=== PATIENT | female | born 1950 | race Caucasian/White ===

== ENCOUNTER 2016-12-08 13:39 | Outpatient (CLI) | payer OTHER ==
[~2016-12-08 13:39] MED LIST: ACETAMINOPHEN325 MG PO; ATENOLOL50 MG PO; ATORVASTATIN CA20 MG PO; METFORMIN HCL500 MG PO; NITROSTAT0.4 MG SL; PRILOSEC20 MG PO
--- NOTE | 2016-12-08 14:23 | DIAGNOSTIC IMAGING REPORT ---
PROCEDURE: US VENOUS - BILATERAL EXT INDICATION: EDEMA TECHNIQUE: Duplex sonography of the deep venous system in both lower extremities was performed. Compression and augmentation techniques were used. COMPARISON: 11/08/2016 FINDINGS: Each interrogated segment of deep vein from the common femoral vein into the calf veins demonstrates normal compressibility, augmentation and/or color Doppler flow without filling defect. No evidence of significant soft-tissue edema, soft-tissue mass or cyst. IMPRESSION: 1. No deep venous thrombosis in either lower extremity.
== END 2016-12-08 23:00 ==
LOC: US SRH 13:39
DX: R60.9 Edema, unspecified (principal)

== ENCOUNTER 2016-12-14 13:03 | Outpatient (CLI) | payer OTHER ==
--- NOTE | 2016-12-15 08:07 | DIAGNOSTIC IMAGING REPORT ---
PROCEDURE: MR BRAIN WITHOUT CONTRAST INDICATION: HEADACHE;ASTROCYTOMA TECHNIQUE: Sagittal T1 FLAIR; coronal T2; axial T1 FLAIR, T2-weighted FLAIR, T2 FSE, gradient echo T2, DWI and ADC sequences. 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 Interval right temporal lobe volume loss with enlargement of the right temporal horn. Right parietal craniotomy defect. Normal sulci. Normal ventricular system with interval mild enlargement. There is no hemorrhage or acute CVA. Normal vascular flow voids. Mild bilateral maxillary and ethmoid sinusitis. Mastoids are clear IMPRESSION: 1. 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 Mild bilateral maxillary and ethmoid sinus 3. Results discussed with Dr. Hogue
== END 2016-12-14 23:00 ==
LOC: MRI SRH 13:03
DX: R51 Headache (principal); C72.9 Malignant neoplasm of central nervous system, unspecified

== ENCOUNTER 2016-12-18 15:06 | Outpatient (CLI) | payer OTHER ==
--- NOTE | 2016-12-18 16:05 | DIAGNOSTIC IMAGING REPORT ---
PROCEDURE: XR CHEST 2 VIEW INDICATION: COUGH TECHNIQUE: PA and lateral views. COMPARISON: Chest 09/21/2016 10/06/2015 03/19/2015 and 07/31/2015 FINDINGS: There is linear infiltrate or atelectasis in the left lower lobe. This appearance was present on previous films. Chest CT may be the best way to evaluate the left lower lobe. Heart and mediastinum are normal. Thorax is normal. IMPRESSION: 1. Probable left lower lobe infiltrate.
== END 2016-12-18 23:00 ==
LOC: XR SRH 15:06
DX: C71.9 Malignant neoplasm of brain, unspecified (principal); R05 Cough

== ENCOUNTER 2016-12-19 14:36 | Outpatient (CLI) | payer OTHER ==
--- NOTE | 2016-12-19 15:43 | DIAGNOSTIC IMAGING REPORT ---
PROCEDURE: CTA THORAX WITH CONTRAST INDICATION: Noted. Shortness of breath. Assess for pulmonary embolus. TECHNIQUE: 86 ml of Isovue 370 was injected intravenously and axial images were obtained of the entire thorax with 3D sagittal and coronal MIP reconstructions. COMPARISON: Comparison is made to chest x-rays on 12/19/2016 and 09/21/2016. FINDINGS: There is mild to moderate respiratory motion as the patient was unable to fully cooperate, and this limits evaluation of peripheral vessels. No large central emboli are identified. There are mild parenchymal changes at the anterior lung bases most compatible with subsegmental atelectasis or scarring. Mid and upper lungs are clear. Heart and mediastinum are within normal limits. Small hiatal hernia. Status post cholecystectomy. Mild to moderate degenerative changes of the thoracic spine Thorax is otherwise normal. IMPRESSION: 1. Study is limited due to respiratory motion, and while subtle peripheral emboli may be difficult to exclude, there are no large central emboli, and there is nothing to suggest pulmonary embolus. 2. Mild of parenchymal changes at the anterior lung bases most compatible with scarring or subsegmental atelectasis (versus resolving pneumonia). 3. Findings discussed with Dr. Kristina Hogue. All CT scans at this facility use dose modulation, iterative reconstruction, and/or weight-based dosing when appropriate to reduce radiation dose to as low as reasonably achievable.
== END 2016-12-19 23:00 ==
LOC: CT SRH 14:36
DX: R06.02 Shortness of breath (principal)

== ENCOUNTER 2017-02-05 13:53 | Outpatient (CLI) | payer OTHER ==
--- NOTE | 2017-02-05 14:45 | DIAGNOSTIC IMAGING REPORT ---
PROCEDURE: CT HEAD WITHOUT CONTRAST INDICATION: FELL HIT HEAD TECHNIQUE: Axial CT images were acquired through the head. Coronal and sagittal reformations were created. COMPARISON: Brain MR 12/14/2016 FINDINGS: No intracranial hemorrhage or extraaxial fluid collections. Diffuse asymmetric hypodensity throughout the right parietal, occipital, and to a lesser extent temporal and frontal lobe white matter. There are a few focal punctate hyperdensities in the right parietal lobe corresponding to the centrally necrotic amorphous mass on prior MRI. There are focal hypodensities in the right basal ganglia and right internal capsule, stable. No new edema. Ventricles are minimally enlarged, normal in shape and position. There is no visible mass, mass effect or midline shift. The oakes-white matter differentiation is normal. Right parietal craniotomy defect, stable. Small amount of mucus dependently in the left maxillary sinus. The paranasal sinuses and mastoid air cells are otherwise normally aerated. The extracranial soft tissues and orbits are normal. IMPRESSION: 1. No CT evidence of acute hemorrhage, mass effect, or stroke. 2. Chronic findings of right temporoparietal mass, associated edema, and treatment changes. 3. Findings discussed with Dr. Gould at [address] scans at this facility use dose modulation, iterative reconstruction, and/or weight-based dosing when appropriate to reduce radiation dose to as low as reasonably achievable.
== END 2017-02-05 23:00 ==
LOC: CT SRH 13:53
DX: R60.9 Edema, unspecified (principal); G93.89 Other specified disorders of brain; R29.6 Repeated falls

== ENCOUNTER 2017-02-24 11:50 | Emergency (ER) | payer OTHER ==
--- NOTE | 2017-02-24 14:08 | DIAGNOSTIC IMAGING REPORT ---
PROCEDURE: XR LUMBAR SPINE 2 OR 3 VIEWS INDICATION: TRAUMA/INJURY TECHNIQUE: Three views. COMPARISON: Compared to radiographs of the lumbar spine on 06/13/2012. FINDINGS: Mild levoscoliosis and marked degenerative changes of the lower lumbar spine. No evidence of an acute process or fracture. IMPRESSION: 1. Marked degenerative changes of the lower lumbar spine. 2. No evidence of acute process or fracture.
--- NOTE | 2017-02-24 14:28 | DIAGNOSTIC IMAGING REPORT ---
PROCEDURE: CT THORACIC SPINE W/O CONT (lower thoracic upper lumbar spine). INDICATION: TRAUMA/INJURY TECHNIQUE: Noncontrast axial images with sagittal and coronal formation is were obtained from mid T7-L2. COMPARISON: Comparison made radiographs of the lumbar spine earlier today (02/24/2017) and CTA thorax (12/19/2016). FINDINGS: There is a 10% old compression deformity T11 vertebral body with mild to moderate degenerative changes of the lower thoracic levels. Findings suggest a subtle compression injury of the superior endplate of L1. The rest of the osseous structures and disc spaces are normal. Alignment is normal. IMPRESSION: 1. There is a 10% old compression deformity of T11. 2. Findings suggest a subtle compression injury/fracture of the superior endplate of L1. 3. Mild to moderate degenerative changes of the lower thoracic spine. 4. Findings discussed with SHENG Burrows. All CT scans at this facility use dose modulation, iterative reconstruction, and/or weight-based dosing when appropriate to reduce radiation dose to as low as reasonably achievable.
--- NOTE | 2017-02-24 15:30 | DIAGNOSTIC IMAGING REPORT ---
PROCEDURE: CT HEAD WITHOUT CONTRAST INDICATION: Trauma/injury. History of brain tumor. TECHNIQUE: Noncontrast axial images with sagittal and coronal reformations. COMPARISON: Compared to a head CT on 02/05/2017 and MRI brain (12/14/2016). FINDINGS: Status post right parietal craniotomy. There is no change in moderate low density in the right temporal parietal region with central dystrophic calcifications. The rest of the brain and ventricles are normal. No evidence of an acute process or hemorrhage. There is mild chronic mucosal thickening in the left maxillary sinus. Sinuses and mastoids are otherwise normal. and mastoids are normal. IMPRESSION: 1. No change in moderate low density and dystrophic calcifications in the right temporal parietal region consistent with treated primary brain neoplasm. 2. No evidence of acute process. 3. Findings discussed with Beckie Jorge at [address] scans at this facility use dose modulation, iterative reconstruction, and/or weight-based dosing when appropriate to reduce radiation dose to as low as reasonably achievable.
--- NOTE | 2017-02-24 15:40 | ED ORDER SUMMARY ---
..... Patient: BETINA CAMARA OrderSheet [facility] VisitID: [id number] [address] [place] [address] 66y, F Registration Date/Time: 02/24/2017 ORDER SHEET Weight: 107.0 kg (stated) Allergies: Penicillin GENERAL ORDERS: Lumbar Spine 2 or 3V Urgent (12:13 02/24/2017 EKoroleva P.A.-C) (Ack 12:15 LNations ER Tech1) (12:50 LNations ER Tech1) CT Thoracic Spine wo Cont (attention to T10-L2) Urgent (13:09 02/24/2017 EKoroleva P.A.-C) (Ack 13:14 RKaruga) (13:17 KKnebel R.N.) CT Head wo Cont Urgent (14:37 02/24/2017 EKoroleva P.A.-C) (Ack 14:44 RKaruga) (15:09 KKnebel R.N.) MEDICATION ORDERS: Dilaudid IM 0.5 mg (HIGH ALERT MEDICATION, NOW) (12:12 02/24/2017 EKoroleva P.A.-C) (12:22 KKnebel R.N.) Phenergan IM 12.5 mg (HIGH ALERT MEDICATION, NOW) (12:12 02/24/2017 EKoroleva P.A.-C) (12:23 KKnebel R.N.) Dilaudid IM 1 mg (HIGH ALERT MEDICATION, NOW) (14:20 02/24/2017 EKoroleva P.A.-C) (14:29 KKnebel R.N.) Zofran ODT PO 4 mg (NOW) (16:01 02/24/2017 EKoroleva P.A.-C) (16:06 KKnebel R.N.) IV FLUIDS: ORDER SHEET NOTES: [Electronically signed by Hillary JorgeA.-C (16:38 02/24/2017)] [Electronically signed by Destini Rivera R.N. (22:46 02/24/2017)] [Electronically locked/signed by Destini Rivera R.N. (22:46 02/24/2017)]
--- NOTE | 2017-02-24 15:40 | ED NURSING NOTES ---
Clinical Report - Nurses [facility] [address] [place] [address] 02/24/2017 11:51 Patient: BETINA CAMARA TRIAGE Triage time 11:56 Feb 24 2017. Acuity: LEVEL 3. Chief Complaint: BACK PAIN. Alert. No acute distress. CAYLA COMA SCORE: Cayla Coma Scale: 15- eyes open spontaneously (4); best verbal response- oriented x 4 (5); best motor response- obeys commands (6). --12:05 Destini Rivera R.N. 11:56 02/24/17. BP: 135/84. HR: 88. RR: 16. O2 saturation: 93%. Temp: 97.6 F. Pain level now: 05/28. --12:05 Destini Rivera R.N. Weight: 107 kg stated. Height/Length: 65 inches Per Patient. BMI: 39.3. --12:06 Destini Rivera R.N. Medications Bupropion. --11:57 Destini Rivera R.N. Dexamethasone Oral. --11:58 Destini Rivera R.N. Lisinopril Oral. --11:58 Destini Rivera R.N. MetFORMIN HCl Oral. --11:58 Destini Rivera R.N. Zofran. --11:59 Destini Rivera R.N. Chemotherapy. --11:59 Destini Rivera R.N. Lantus. --12:05 Destini Rivera R.N. Compazine. --12:05 Destini Rivera R.N. Bactrim. --12:05 Destini Rivera R.N. Allergies Penicillin. --11:57 Destini Rivera R.N. History Arrived by EMS. Historian: patient. This started just prior to arrival. ( pt fell off toilet and hit head on door). She has had pre-existing weakness of the left arm and leg. She has had trouble walking. No history of recent trauma. Occurred at home. Treatment EARTH MOVING TECHNICIAN: None. PAST MEDICAL HX: Tetanus status: up-to-date. Immunizations: up-to-date. SOCIAL HX: Never smoker. Occasional alcohol use. No drug use. No infectious disease exposure. SELF HARM ASSESSMENT: A self harm assessment was performed. The patient was asked "Do you have thoughts of harming or killing yourself?". NUTRITIONAL RISK ASSESSMENT: The nutritional risk assessment revealed no deficiencies. FUNCTIONAL ASSESSMENT: Functional assessment: no impairments noted. LEARNING NEEDS ASSESSMENT: The learning needs assessment revealed no barriers. ABUSE ASSESSMENT: Abuse assessment: The patient was asked "Do you feel safe in your home?". FALL RISK ASSESSMENT: Fall risk assessment completed. Risk factors identified include patient medications, age greater than 65 years and history of fall. Fall interventions initiated. Side rails up x2. Brakes on Bed in low position. Patient visible from nurses' station and identified as a fall risk by ID band. Family at bedside. Instructed not to get up without assistance. SKIN INTEGRITY ASSESSMENT: Skin integrity risk assessment completed. No skin integrity risk identified. --12:05 Destini Rivera R.N. PROBLEMS: Hypertension. Brain Tumor. Chest Pain. Abdominal Pain. Vomiting. Gastroesophageal Reflux Disease. Diabetes Mellitus. Irregular heart beat. --12:00 Destini Rivera R.N. ADDITIONAL SURGERIES: Brain surgery. Cholecystectomy. --12:00 Destini Rivera R.N. Assessment The patient states does not feel the same. --12:05 Destini Rivera R.N. Interventions ID band on patient. --12:05 Destini Rivera R.N. PHYSICAL ASSESSMENT GENERAL / NEURO / PSYCH: Alert. Oriented X 4. Appears in no acute distress. RESPIRATORY: Respirations not labored. CVS: Capillary refill less than 2 seconds. GI / : Abdomen soft and nontender. EXTREMITIES: Limited ROM present. BACK: Limited ROM. Soft tissue tenderness. --12:05 Destini Rivera R.N. NURSING PROGRESS NOTES Pulse oximeter and NIBP monitor placed on patient. Patient gowned. Head of bed elevated. Two patient identifiers checked. Call light placed in reach. Side rails up x 1. Bed placed in lowest position. Brakes of bed on. --12:07 Destini Rivera R.N. 12:22 02/24/2017 Dilaudid (HYDROmorphone HCl PF) IM 0.5 mg given. Given in the left gluteus nalini. Allergies verified, confirmed 5 rights and sedative warning given to the patient. --12:22 Destini Rivera R.N. 12:23 02/24/2017 Phenergan (Promethazine HCl) IM 12.5 mg given. Given in the left gluteus nalini. Allergies verified, confirmed 5 rights and sedative warning given to the patient. --12:23 Destini Rivera R.N. Patient transported to radiology by stretcher with tech. (12:33 Feb 24 2017). --12:33 Destini Rivera R.N. Patient returned from radiology by stretcher with tech. (12:50 Feb 24 2017). --12:50 Destini Rivera R.N. 12:52 02/24/17. BP: 125/74. HR: 78. RR: 16. O2 saturation: 94%. Pain level now: 05/28. --12:52 Destini Rivera R.N. Patient transported to CT by stretcher with tech. (13:16 Feb 24 2017). --13:16 Destini Rivera R.N. 14:13 02/24/17. BP: 108/69. HR: 83. O2 saturation: 93%. Pain level now: 04/28. --14:16 Destini Rivera R.N. Reassessment after medication administered. She is calm and resting quietly. Overall patient status is improved. GENERAL / NEURO / PSYCH: Alert. Oriented X 4. BACK: The patient reports lower back pain is still present but improving. SKIN: Skin is warm and dry. Skin color within normal limits. --14:16 Destini Rivera R.N. 14:24 02/24/2017 Dilaudid (HYDROmorphone HCl PF) IM 1 mg given. Given in the left deltoid. Allergies verified, confirmed 5 rights and sedative warning given to the patient. --14:29 Destini Rivera R.N. ( repositioned pt on her right side for comfort). --14:30 Destini Rivera R.N. 15:03 02/24/17. BP: 124/75. HR: 97. RR: 16. O2 saturation: 91%. Additional comments: pt states that she is not having any pain while laying flat, but is painful when she tries to sit up. Patient sleeping at this time. . --15:04 Destini Rivera R.N. 16:06 02/24/2017 Zofran ODT (Ondansetron) PO 4 mg given. Allergies verified and confirmed 5 rights. --16:06 Destini Rivera R.N. DISPOSITION / DISCHARGE 16:45 02/24/17. Departure time: 1634. Condition at departure: improved. Reviewed medication(s) side effects, precautions, dosing and course information (spouse). Spouse and family verbalized understanding. Written instructions provided in Nepali. The patient was discharged by the physician circulation assistant. She was discharged home and accompanied by spouse and family. She left the Emergency Department in a wheelchair and via private vehicle. Spouse driving. ( pt is able to stand and pivot with walker to personal w/c). --16:45 Sam Goldstein R.N. 16:40 02/24/17. BP: 122/91. HR: 107. RR: 16. O2 saturation: 98% on room air. Temp: 97.7 F (oral). Pain level now 0/10. --16:45 Sam Goldstein R.N. Locked/Released at 02/24/2017 22:46 by Destini Rivera R.N.
--- NOTE | 2017-02-24 15:40 | ED NURSING NOTES ---
Clinical Report - Nurses [facility] [address] [place] [address] 02/24/2017 11:51 Patient: BETINA CAMARA TRIAGE Triage time 11:56 Feb 24 2017. Acuity: LEVEL 3. Chief Complaint: BACK PAIN. Alert. No acute distress. CAYLA COMA SCORE: Cayla Coma Scale: 15- eyes open spontaneously (4); best verbal response- oriented x 4 (5); best motor response- obeys commands (6). --12:05 Destini Rivera R.N. 11:56 02/24/17. BP: 135/84. HR: 88. RR: 16. O2 saturation: 93%. Temp: 97.6 F. Pain level now: 05/28. --12:05 Destini Rivera R.N. Weight: 107 kg stated. Height/Length: 65 inches Per Patient. BMI: 39.3. --12:06 Destini Rivera R.N. Medications Bupropion. --11:57 Destini Rivera R.N. Dexamethasone Oral. --11:58 Destini Rivera R.N. Lisinopril Oral. --11:58 Destini Rivera R.N. MetFORMIN HCl Oral. --11:58 Destini Rivera R.N. Zofran. --11:59 Destini iRvera R.N. Chemotherapy. --11:59 Destini Rivera R.N. Lantus. --12:05 Destini Rivera R.N. Compazine. --12:05 Destini Rivera R.N. Bactrim. --12:05 Destini Rivera R.N. Allergies Penicillin. --11:57 Destini Rivera R.N. History Arrived by EMS. Historian: patient. This started just prior to arrival. ( pt fell off toilet and hit head on door). She has had pre-existing weakness of the left arm and leg. She has had trouble walking. No history of recent trauma. Occurred at home. 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 PAST MEDICAL HX: Tetanus status: up-to-date. Immunizations: up-to-date. SOCIAL HX: Never smoker. Occasional alcohol use. No drug use. No infectious disease exposure. SELF HARM ASSESSMENT: A self harm assessment was performed. The patient was asked "Do you have thoughts of harming or killing yourself?". NUTRITIONAL RISK ASSESSMENT: The nutritional risk assessment revealed no deficiencies. FUNCTIONAL ASSESSMENT: Functional assessment: no impairments noted. LEARNING NEEDS ASSESSMENT: The learning needs assessment revealed no barriers. ABUSE ASSESSMENT: Abuse assessment: The patient was asked "Do you feel safe in your home?". FALL RISK ASSESSMENT: Fall risk assessment completed. Risk factors identified include patient medications, age greater than 65 years and history of fall. Fall interventions initiated. Side rails up x2. Brakes on Bed in low position. Patient visible from nurses' station and identified as a fall risk by ID band. Family at bedside. Instructed not to get up without assistance. SKIN INTEGRITY ASSESSMENT: Skin integrity risk assessment completed. No skin integrity risk identified. --12:05 Destini Rivera R.N. PROBLEMS: Hypertension. Brain Tumor. Chest Pain. Abdominal Pain. Vomiting. Gastroesophageal Reflux Disease. Diabetes Mellitus. Irregular heart beat. --12:00 Destini Rivera R.N. ADDITIONAL SURGERIES: Brain surgery. Cholecystectomy. --12:00 Destini Rivera R.N. Assessment The patient states does not feel the same. --12:05 Destini Rivera R.N. Interventions ID band on patient. --12:05 Destini Rivera R.N. PHYSICAL ASSESSMENT GENERAL / NEURO / PSYCH: Alert. Oriented X 4. Appears in no acute distress. RESPIRATORY: Respirations not labored. CVS: Capillary refill less than 2 seconds. GI / : Abdomen soft and nontender. EXTREMITIES: Limited ROM present. BACK: Limited ROM. Soft tissue tenderness. --12:05 Destini Rivera R.N. NURSING PROGRESS NOTES Pulse oximeter and NIBP monitor placed on patient. Patient gowned. Head of bed elevated. Two patient identifiers checked. Call light placed in reach. Side rails up x 1. Bed placed in lowest position. Brakes of bed on. --12:07 Destini Rivera R.N. 12:22 02/24/2017 Dilaudid (HYDROmorphone HCl PF) IM 0.5 mg given. Given in the left gluteus nalini. Allergies verified, confirmed 5 rights and sedative warning given to the patient. --12:22 Destini Rivera R.N. 12:23 02/24/2017 Phenergan (Promethazine HCl) IM 12.5 mg given. Given in the left gluteus nalini. Allergies verified, confirmed 5 rights and sedative warning given to the patient. --12:23 Destini Rivera R.N. Patient transported to radiology by stretcher with tech. (12:33 Feb 24 2017). --12:33 Destini Rivera R.N. Patient returned from radiology by stretcher with tech. (12:50 Feb 24 2017). --12:50 Destini Rivera R.N. 12:52 02/24/17. BP: 125/74. HR: 78. RR: 16. O2 saturation: 94%. Pain level now: 05/28. --12:52 Destini Rivera R.N. Patient transported to CT by stretcher with tech. (13:16 Feb 24 2017). --13:16 Destini Rivera R.N. 14:13 02/24/17. BP: 108/69. HR: 83. O2 saturation: 93%. Pain level now: 04/28. --14:16 Destini Rivera R.N. Reassessment after medication administered. She is calm and resting quietly. Overall patient status is improved. GENERAL / NEURO / PSYCH: Alert. Oriented X 4. BACK: The patient reports lower back pain is still present but improving. SKIN: Skin is warm and dry. Skin color within normal limits. --14:16 Destini Rivera R.N. 14:24 02/24/2017 Dilaudid (HYDROmorphone HCl PF) IM 1 mg given. Given in the left deltoid. Allergies verified, confirmed 5 rights and sedative warning given to the patient. --14:29 Destini Rivera R.N. ( repositioned pt on her right side for comfort). --14:30 Destini Rivera R.N. 15:03 02/24/17. BP: 124/75. HR: 97. RR: 16. O2 saturation: 91%. Additional comments: pt states that she is not having any pain while laying flat, but is painful when she tries to sit up. Patient sleeping at this time. . --15:04 Destini Rivera R.N. 16:06 02/24/2017 Zofran ODT (Ondansetron) PO 4 mg given. Allergies verified and confirmed 5 rights. --16:06 Destini Rivera R.N. DISPOSITION / DISCHARGE 16:45 02/24/17. Departure time: 1634. Condition at departure: improved. Reviewed medication(s) side effects, precautions, dosing and course information (spouse). Spouse and family verbalized understanding. Written instructions provided in Korean. The patient was discharged by the physician therapist's assistant. She was discharged home and accompanied by spouse and family. She left the Emergency Department in a wheelchair and via private vehicle. Spouse driving. ( pt is able to stand and pivot with walker to personal w/c). --16:45 Sam Goldstein R.N. 16:40 02/24/17. BP: 122/91. HR: 107. RR: 16. O2 saturation: 98% on room air. Temp: 97.7 F (oral). Pain level now 0/10. --16:45 Sam Goldstein R.N. Locked/Released at 02/24/2017 22:46 by Destini Rivera R.N.
--- NOTE | 2017-02-24 15:40 | ED ORDER SUMMARY ---
..... Patient: BETINA CAMARA OrderSheet [facility] VisitID: [id number] [address] [place] [address] 66y, F Registration Date/Time: 02/24/2017 ORDER SHEET Weight: 107.0 kg (stated) Allergies: Penicillin GENERAL ORDERS: Lumbar Spine 2 or 3V Urgent (12:13 02/24/2017 EKoroleva P.A.-C) (Ack 12:15 LNations ER Tech1) (12:50 LNations ER Tech1) CT Thoracic Spine wo Cont (attention to T10-L2) Urgent (13:09 02/24/2017 EKoroleva P.A.-C) (Ack 13:14 RKaruga) (13:17 KKnebel R.N.) CT Head wo Cont Urgent (14:37 02/24/2017 EKoroleva P.A.-C) (Ack 14:44 RKaruga) (15:09 KKnebel R.N.) MEDICATION ORDERS: Dilaudid IM 0.5 mg (HIGH ALERT MEDICATION, NOW) (12:12 02/24/2017 EKoroleva P.A.-C) (12:22 KKnebel R.N.) Phenergan IM 12.5 mg (HIGH ALERT MEDICATION, NOW) (12:12 02/24/2017 EKoroleva P.A.-C) (12:23 KKnebel R.N.) Dilaudid IM 1 mg (HIGH ALERT MEDICATION, NOW) (14:20 02/24/2017 EKoroleva P.A.-C) (14:29 KKnebel R.N.) Zofran ODT PO 4 mg (NOW) (16:01 02/24/2017 EKoroleva P.A.-C) (16:06 KKnebel R.N.) IV FLUIDS: ORDER SHEET NOTES: [Electronically signed by Hillary JorgeA.-C (16:38 02/24/2017)] [Electronically signed by Destini Rivera R.N. (22:46 02/24/2017)] [Electronically locked/signed by Destini Rivera R.N. (22:46 02/24/2017)]
--- NOTE | 2017-02-24 15:40 | ED CLINICAL REPORT ---
Clinical Report - Physicians/Mid Levels [facility] [address] [place] [address] 02/24/2017 11:51 Patient: BETINA CAMARA Time Seen: 12:16 Feb 24 2017. Arrived- By ambulance. Historian- patient, EMS personnel and family. HISTORY OF PRESENT ILLNESS Location of injuries- (back). Chief Complaint: FALL. The injury occurred just prior to arrival. Occurred at home. Fell. The patient complains of mild pain. The patient sustained a blow to the head. (possible, NO LOC). 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 She stood up to grab to the railing, which she normally does, however missed a railing and fell. She denies LOC, possible injury to her head from the door. She started screaming immediately, and her rushed upstairs, no LOC noted. Started screaming and was present immediately for care. She over the last 2 weeks has had some decrease in her weakness, ambulating only with limited mobility, on her walker. Per family patient behaving her normal self). REVIEW OF SYSTEMS The patient complains of pain on weight bearing. No numbness, loss of vision, hearing loss, weakness or headache. No nausea, laceration or vomiting. All systems otherwise negative, except as recorded above. PAST HISTORY RHD. Problems: Hypertension. Brain Tumor. Chest Pain. Abdominal Pain. Vomiting. Gastroesophageal Reflux Disease. Diabetes Mellitus. Irregular heart beat. Additional Surgeries: Brain surgery. Cholecystectomy. Medications: Bactrim. Compazine. Lantus. Chemotherapy. Zofran. MetFORMIN HCl Oral. Lisinopril Oral. Dexamethasone Oral. Bupropion. Allergies: Penicillin. SOCIAL HISTORY Never smoker. Alcohol use. No drug use. ADDITIONAL NOTES The nursing notes have been reviewed. PHYSICAL EXAM Vital Signs: 02/24/2017 11:56 BP: 135/84. HR: 88. RR: 16. O2 saturation: 93%. Temp: 97.6 F. Pain level now: 05/28. Appearance: Alert. No acute distress. No backboard or C-collar. Head: Head non-tender. Eyes: Pupils equal, round and reactive to light. ENT: No hemotympanum. Neck: No pain with movement of head/neck. Non-tender. No vertebral tenderness. CVS: Heart sounds normal. Pulses normal. Respiratory: Breath sounds normal. Chest nontender. No chest wall injury. Abdomen: No visible injury. Soft. Bowel sounds normal. Abdomen. No tenderness. No laceration. No abdominal tenderness. Back: Moderate vertebral tenderness in the right upper and left upper lumbar area. No tenderness in the thoracic area on the right or left. Skin: Skin intact. Skin warm. Extremities: No abrasions. Left forearm. (small abrasion). Pelvis stable. Left ankle. (lower leg ecchymosis). Neuro: Cayla Coma Scale: 15- eyes open spontaneously (4); best verbal response- oriented x 3 (5); best motor response- obeys commands (6). Awake. Oriented X 3 and 3. No alteration in mental status. Mood/affect normal. Speech normal. Cranial nerves II through XII intact. No motor deficit. The patient has had weakness of the left leg (moderate) and left foot (moderate). LABS, X-RAYS, AND EKG LS-Spine X-rays: (IMPRESSION: 1. Marked degenerative changes of the lower lumbar spine. 2. No evidence of acute process or fracture. Electronically Final signed by:Mart Welsh MD 02/24/2017 2:03:57 PM). CT Head: (IMPRESSION: 1. No change in moderate low density and dystrophic calcifications in the right temporal parietal region consistent with treated primary brain neoplasm. 2. No evidence of acute process. 3. Findings discussed with Beckie Jorge at [address] scans at this facility use dose modulation, iterative reconstruction, and/or weight-based dosing when appropriate to reduce radiation dose to as low as reasonably achievable. Electronically Final signed by:Mart Welsh MD 02/24/2017 3:27:31 PM). Note - Tests: (CT L Spine: non contrast IMPRESSION: 1. There is a 10% old compression deformity of T11. 2. Findings suggest a subtle compression injury/fracture of the superior endplate of L1. 3. Mild to moderate degenerative changes of the lower thoracic spine. 4. Findings discussed with Beckie Jorge, PAC. All CT scans at this facility use dose modulation, iterative reconstruction, and/or weight-based dosing when appropriate to reduce radiation dose to as low as reasonably achievable. Electronically Final signed by:Mart Welsh MD 02/24/2017 2:24:48 PM). PROGRESS AND PROCEDURES Course of Care: patient with numerous previous CT and MRI imaging for her head, discussed with family and patient in regard to imaging her head, and this time does not believe she had any LOC, or concerns for head injury. Head appears atrumatic. Dilauidid 0.5 mg with 12.5 mg phenergan IM Discussed images with DR. Campo, signs of compression fx at T11 level, will obtain ct as pt denies prior ho back injury. CT head negative. CT lumbar thoracic spine region of new injury after discussing with Dr. Matt Bermeo, possible over read on the CT, however L1 small possible stable superior end plate as noted in the lumbar CT/ thoracic ct. patient otherwise stable. Able to stand, which she usually does at home and to follow up outpatient. Given narcotic medications here as well as outpatient. Patient is stable. Symptoms better. Disposition: Discharged. CLINICAL IMPRESSION Nondisplaced T10 wedge compression fracture. (OLD). Lumbar spine fracture. (L1 subtle endplate FX). Minor closed head injury. Single superficial abrasion to the left forearm. Fall on same level by stumbling. INSTRUCTIONS Apply ice. Prescription Medications: Hydrocodone/APAP 5mg / 325mg: take 1-2 orally every 6 hours as needed for pain. Dispense twenty-five (25). No refill. Follow-up: Follow up with your doctor in three days. Understanding of the discharge instructions verbalized by patient and family. Follow-up with: [facility], , [address], , [place], [id number] Follow up. Call for the next available appointment. (Electronically signed by Hillary Jorge P.A.-C 02/24/2017 16:38)
--- NOTE | 2017-02-24 22:46 | ED MED RECONCILIATION SUMMARY ---
Patient: BETINA CAMARA Medication Reconciliation Report [facility] VisitID: [id number] [address] [place] [address] 66y, F Registration Date/Time: 02/24/2017 Weight: 107.0 kg Height/Length: 65 in. BMI: 39.3 ALLERGIES: Penicillin The patient's Home Medications are listed below: THE FOLLOWING MEDICATIONS NEED TO BE RECONCILED: Bactrim Bupropion Chemotherapy Compazine Dexamethasone Oral Lantus Lisinopril Oral MetFORMIN HCl Oral Zofran The source(s) of the original Home Medication information: Not obtained. The following Medications were given to the patient in the Emergency Department: Dilaudid [IM] IM 0.5 mg, administered: 02/24/2017 12:22:00 PM Phenergan [IM] IM 12.5 mg, administered: 02/24/2017 12:23:00 PM Dilaudid [IM] IM 1 mg, administered: 02/24/2017 2:24:00 PM Zofran ODT [PO] PO 4 mg, administered: 02/24/2017 4:06:00 PM The following Medications were prescribed to the patient: Hydrocodone/APAP 5mg / 325mg: take 1-2 orally every 6 hours as needed for pain. Dispense twenty-five (25). No refill. -- Hillary Jorge P.A.-C
--- NOTE | 2017-02-24 22:46 | ED MAR SUMMARY ---
..... Medication Administration Record [facility] [address] [place] [address] Patient: BETINA CAMARA Visit ID: [id number] 66y, F Weight: 107.0 kg Height/Length: 65 in BMI: 39.3 ALLERGIES: Penicillin Given 12:22 02/24/2017 Destiin Rivera R.N. Medication Administered: DILAUDID [IM] (HYDROMORPHONE HCL PF), Dose: 0.5 mg IM. Medication Ordered: Dilaudid IM 0.5 mg (HIGH ALERT MEDICATION, NOW). Given 12:23 02/24/2017 Destini Rivera R.N. Medication Administered: PHENERGAN [IM] (PROMETHAZINE HCL), Dose: 12.5 mg IM. Medication Ordered: Phenergan IM 12.5 mg (HIGH ALERT MEDICATION, NOW). Given 14:24 02/24/2017 Destini Rivera R.N. Medication Administered: DILAUDID [IM] (HYDROMORPHONE HCL PF), Dose: 1 mg IM. Medication Ordered: Dilaudid IM 1 mg (HIGH ALERT MEDICATION, NOW). Given 16:06 02/24/2017 Destini Rivera R.N. Medication Administered: ZOFRAN ODT [PO] (ONDANSETRON), Dose: 4 mg PO. Medication Ordered: Zofran ODT PO 4 mg (NOW).
--- NOTE | 2017-02-24 22:46 | ED DISCHARGE INSTRUCTIONS ---
Patient: BETINA CAMARA General Instructions [facility] VisitID: [id number] [address], [place], [place] [id number] 66y, F Registration Date/Time: 02/24/2017 Nondisplaced T10 wedge compression fracture. (OLD). Lumbar spine fracture. (L1 subtle endplate FX). Minor closed head injury. Single superficial abrasion to the left forearm. Fall on same level by stumbling. INSTRUCTIONS Apply ice. Prescription Medications: Hydrocodone/APAP 5mg / 325mg: take 1-2 orally every 6 hours as needed for pain. Dispense twenty-five (25). No refill. Follow-up: Follow up with your doctor in three days. Understanding of the discharge instructions verbalized by patient and family. Follow-up with: [facility], , [address], , [place], [id number] Follow up. Call for the next available appointment. ADDITIONAL INFORMATION Abrasions Abrasions are skin scrapes. Their treatment depends on how large and deep the abrasion is. Home Care: If you were given a bandage, change it once a day. If your bandage sticks to the wound, soak it in warm water until it loosens. Wash the area with soap and water to remove all the cream/ointment. You may do this in a sink, under a tub faucet or shower. Rinse off the soap and pat dry with a clean towel. Reapply cream/ointment according to your doctor's instructions. This will prevent infection and help prevent the bandage from sticking. Cover the wound with a fresh non-stick bandage (Telfa). Repeat steps 1 to 4 daily, or as directed by your doctor. If the bandage becomes wet or dirty, change it as soon as possible. You may use acetaminophen (Tylenol) or ibuprofen (Motrin, Advil) to control pain, unless another pain medicine was prescribed. [ NOTE : If you have chronic liver or kidney disease or ever had a stomach ulcer or GI bleeding, talk with your doctor before using these medicines.] Do not use ibuprofen in children under six months of age. Follow Up with your physician or this facility as directed by our staff. Most skin wounds heal within ten days. However, an infection may occur despite proper treatment. Therefore, look for the early signs of infection listed below. Get Prompt Medical Attention if any of the following occur: Increasing pain in the wound Increasing redness or swelling Pus coming from the wound Fever of 100.4F (38C) or higher, or as directed by your healthcare provider Vertebral Compression Fracture You have a compression fracture of one of the bones in your spine. This fracture usually occurs in older persons with osteoporosis (thinning of the bones). It may occur after a ground level fall or even with a very minor force (bending forward, getting up from a seated position, coughing or sneezing). It may also occur in young healthy persons after a severe trauma (car accident or fall from a height). This is a stable fracture and does not cause any injury to the spinal cord or nerves. This injury will take 4-6 weeks to heal and can be treated at home with bed rest and pain medicine. Pain medicine and anti-inflammatory medicine (such as ibuprofen) can be used for a short term, but long-term use increases the risk of side effects. These include GI bleeding and narcotic dependence. If pain medicine is needed for more than 1-2 months, you should talk to your doctor about surgical treatment to re-align the compressed bones. Bed rest is fine during the first week, as needed for pain, but it is best to get out of bed as soon as possible. This avoids the risk of blood clots forming in the legs and weakening of your muscles from prolonged bed rest. A back brace (called TSLO) or abdominal binder may be prescribed to reduce pain by limiting motion at the fracture site. If you have osteoporosis, talk to your doctor about using calcium and Vitamin D supplements to prevent further bone loss. An exercise program (such as Pilates) to strengthen spine strength is a very important part of the treatment plan and should begin once the pain comes under control. Home Care: You may need to stay in bed the first few days. But, as soon as possible, begin sitting or walking to avoid problems with prolonged bed rest (muscle weakness, worsening back stiffness and pain, blood clots in the legs). When in bed, try to find a position of comfort. A firm mattress is best. Try lying flat on your back with pillows under your knees. You can also try lying on your side with your knees bent up towards your chest and a pillow between your knees. Avoid prolonged sitting. This puts more stress on the lower back than standing or walking. During the first two days after injury, apply an ICE PACK to the painful area for 20 minutes every 2-4 hours. This will reduce swelling and pain. HEAT (hot shower, hot bath or heating pad) works well for muscle spasm. You can start with ice, then switch to heat after two days. Some patients feel best alternating ice and heat treatments. Use the one method that feels the best to you. Take pain medicine as directed. Call your doctor if your pain is not well controlled. A dose change or stronger medicine may be needed. Be aware of safe lifting methods and do not lift anything over 15 pounds until all the pain is gone. Follow Up with your doctor in one week, or as advised by our staff, to be sure the bone is healing properly. [NOTE: A radiologist will review any X-rays that were taken. We will notify you of any new findings that may affect your care.] Get Prompt Medical Attention if any of the following occur: Pain becomes worse or spreads to your arms or legs Weakness or numbness in one or both legs Loss of control over bowels or bladder, or numbness in the groin area Mechanical Fall You have had a fall today. It appears that the cause is mechanical. That means that you slipped, tripped or lost your balance. If your fall had been due to fainting or a seizure, further tests would be required. Home Care: Rest today and resume your normal activities when you are feeling back to normal. If you were injured during the fall, follow the advice from your doctor regarding care of your injury. You may use acetaminophen (Tylenol) or ibuprofen (Motrin, Advil) to control pain, unless another pain medicine was prescribed. [NOTE: If you have chronic liver or kidney disease or ever had a stomach ulcer or GI bleeding, talk with your doctor before using these medicines.] Fall Prevention: Was there anything that caused your fall that can be fixed, removed, or replaced? Make your home safe by keeping walkways clear of objects you may trip over. Use non-slip pads under rugs. Do not walk in poorly lit areas. Do not stand on chairs or wobbly ladders. Use caution when reaching overhead or looking upward. This position can cause a loss of balance. Be sure your shoes fit properly, have non-slip bottoms and are in good condition. Be cautious when going up and down curbs, and walking on uneven sidewalks. If your balance is poor, consider using a cane or walker. Stay as active as you can. Balance, flexibility, strength, and endurance all come from exercise. They all play a role in preventing falls. Follow Up with your doctor or as advised by our staff. Get Prompt Medical Attention if any of the following occur: Repeated mechanical falls, or unexplained falls Dizziness, fainting or seizure Severe headache Chest pain or shortness of breath Palpitations (very rapid or very slow or irregular heartbeat) Blood in vomit, stools (black or red color) Weakness of an arm or leg or one side of the face Difficulty with speech or vision Head Injury, No Wake-Up (Adult) You have had a head injury. It does not appear serious at this time. Symptoms of a more serious problem (concussion, bruising, or bleeding in the brain) may appear later. Therefore, watch for the WARNING SIGNS listed below. Home Care: Your healthcare provider will tell you whether its okay to drive. If so, you can drive yourself home. For the next day or so, be careful when driving or using heavy machinery until you are sure you have no delayed symptoms. During the next 24 hours someone must stay with you to check for the signs below. It is not necessary to stay awake or be awakened during the night. If you have swelling of the face or scalp, apply an ice pack (ice cubes in a plastic bag, wrapped in a towel) for 20 minutes. Do this every 1-2 hours until the swelling starts to go down. Do not use aspirin or ibuprofen (Motrin, Advil) after a head injury.You may use acetaminophen (Tylenol)to control pain, unless another pain medicine was prescribed. [NOTE: If you have chronic liver or kidney disease or ever had a stomach ulcer or GI bleeding, talk with your doctor before using these medicines.] For the next 24 hours: Do not take alcohol, sedatives or medicines that make you sleepy. Avoid strenuous activities. No lifting or straining. If you have had any symptoms of a concussion today (nausea, vomiting, dizziness, confusion, headache, memory loss or if you were knocked out), do not return to sports or any activity that could result in another head injury until all symptoms are gone and you have been cleared by your doctor. A second head injury before fully recovering from the first one can lead to serious brain injury. Follow Up with your doctor if symptoms are not improving after 24 hours, or as directed. [NOTE: A radiologist will review any X-rays or CT scans that were taken. We will notify you of any new findings that may affect your care.] Get Prompt Medical Attention if any of the followingWARNING SIGNS occur: Repeated vomiting Severe or worsening headache or dizziness Unusual drowsiness, or unable to awaken as usual Confusion or change in behavior or speech, memory loss, blurred vision Convulsion (seizure) Increasing scalp or face swelling Redness, warmth or pus from the swollen area Fluid drainage or bleeding from the nose or ears Hydrocodone Bitartrate, Acetaminophen Oral tablet What is this medicine? ACETAMINOPHEN; HYDROCODONE (a set a JOEL driss fen; bladimir droe KOE done) is a pain reliever. It is used to treat mild to moderate pain. How should I use this medicine? Take this medicine by mouth. Swallow it with a full glass of water. Follow the directions on the prescription label. If the medicine upsets your stomach, take the medicine with food or milk. Do not take more than you are told to take. Talk to your pyroglazer regarding the use of this medicine in children. This medicine is not approved for use in children. What side effects may I notice from receiving this medicine? Side effects that you should report to your doctor or health healthcare sales representative as soon as possible: allergic reactions like skin rash, itching or hives, swelling of the face, lips, or tongue breathing problems confusion feeling faint or lightheaded, falls stomach pain yellowing of the eyes or skin Side effects that usually do not require medical attention (report to your doctor or health healthcare sales representative if they continue or are bothersome): nausea, vomiting stomach upset What may interact with this medicine? alcohol antihistamines isoniazid medicines for depression, anxiety, or psychotic disturbances medicines for sleep muscle relaxants naltrexone narcotic medicines (opiates) for pain phenobarbital ritonavir tramadol What if I miss a dose? If you miss a dose, take it as soon as you can. If it is almost time for your next dose, take only that dose. Do not take double or extra doses. Where should I keep my medicine? Keep out of the reach of children. This medicine can be abused. Keep your medicine in a safe place to protect it from theft. Do not share this medicine with anyone. Selling or giving away this medicine is dangerous and against the law. Store at room temperature between 15 and 30 degrees C (59 and 86 degrees F). Protect from light. Keep container tightly closed. Throw away any unused medicine after the expiration date. Discard unused medicine and used packaging carefully. Pets and children can be harmed if they find used or lost packages. What should I tell my health care provider before I take this medicine? They need to know if you have any of these conditions: brain tumor Crohn's disease, inflammatory bowel disease, or ulcerative colitis drink more than 3 alcohol-containing drinks per day drug abuse or addiction head injury heart or circulation problems kidney disease or problems going to the bathroom liver disease lung disease, asthma, or breathing problems an unusual or allergic reaction to acetaminophen, hydrocodone, other opioid analgesics, other medicines, foods, dyes, or preservatives or trying to get breast-feeding What should I watch for while using this medicine? Tell your doctor or health healthcare sales representative if your pain does not go away, if it gets worse, or if you have new or a different type of pain. You may develop tolerance to the medicine. Tolerance means that you will need a higher dose of the medicine for pain relief. Tolerance is normal and is expected if you take the medicine for a long time. Do not suddenly stop taking your medicine because you may develop a severe reaction. Your body becomes used to the medicine. This does NOT mean you are addicted. Addiction is a behavior related to getting and using a drug for a non-medical reason. If you have pain, you have a medical reason to take pain medicine. Your doctor will tell you how much medicine to take. If your doctor wants you to stop the medicine, the dose will be slowly lowered over time to avoid any side effects. You may get drowsy or dizzy when you first start taking the medicine or change doses. Do not drive, use machinery, or do anything that may be dangerous until you know how the medicine affects you. Stand or sit up slowly. There are different types of narcotic medicines (opiates) for pain. If you take more than one type at the same time, you may have more side effects. Give your health care provider a list of all medicines you use. Your doctor will tell you how much medicine to take. Do not take more medicine than directed. Call emergency for help if you have problems breathing. The medicine will cause constipation. Try to have a bowel movement at least every 2 to 3 days. If you do not have a bowel movement for 3 days, call your doctor or health healthcare sales representative. Too much acetaminophen can be very dangerous. Do not take Tylenol (acetaminophen) or medicines that contain acetaminophen with this medicine. Many non-prescription medicines contain acetaminophen. Always read the labels carefully. You have been given the following additional information: Abrasion Fracture, Vertebral Compression Fall, Mechanical HEAD INJURY, No Wake-Up (Adult) Hydrocodone Bitartrate, Acetaminophen Oral tablet (Electronically signed by Hillary Jorge P.A.-C 02/24/2017 16:38)
--- NOTE | 2017-02-24 22:46 | ED MAR SUMMARY ---
..... Medication Administration Record [facility] [address] [place] [address] Patient: BETINA CAMARA Visit ID: [id number] 66y, F Weight: 107.0 kg Height/Length: 65 in BMI: 39.3 ALLERGIES: Penicillin Given 12:22 02/24/2017 Destini Rivera R.N. Medication Administered: DILAUDID [IM] (HYDROMORPHONE HCL PF), Dose: 0.5 mg IM. Medication Ordered: Dilaudid IM 0.5 mg (HIGH ALERT MEDICATION, NOW). Given 12:23 02/24/2017 Destini Rivera R.N. Medication Administered: PHENERGAN [IM] (PROMETHAZINE HCL), Dose: 12.5 mg IM. Medication Ordered: Phenergan IM 12.5 mg (HIGH ALERT MEDICATION, NOW). Given 14:24 02/24/2017 Destini Rivera R.N. Medication Administered: DILAUDID [IM] (HYDROMORPHONE HCL PF), Dose: 1 mg IM. Medication Ordered: Dilaudid IM 1 mg (HIGH ALERT MEDICATION, NOW). Given 16:06 02/24/2017 Destini Rivera R.N. Medication Administered: ZOFRAN ODT [PO] (ONDANSETRON), Dose: 4 mg PO. Medication Ordered: Zofran ODT PO 4 mg (NOW).
--- NOTE | 2017-02-24 22:46 | ED MED RECONCILIATION SUMMARY ---
Patient: BETINA CAMARA Medication Reconciliation Report [facility] VisitID: [id number] [address] [place] [address] 66y, F Registration Date/Time: 02/24/2017 Weight: 107.0 kg Height/Length: 65 in. BMI: 39.3 ALLERGIES: Penicillin The patient's Home Medications are listed below: THE FOLLOWING MEDICATIONS NEED TO BE RECONCILED: Bactrim Bupropion Chemotherapy Compazine Dexamethasone Oral Lantus Lisinopril Oral MetFORMIN HCl Oral Zofran The source(s) of the original Home Medication information: Not obtained. The following Medications were given to the patient in the Emergency Department: Dilaudid [IM] IM 0.5 mg, administered: 02/24/2017 12:22:00 PM Phenergan [IM] IM 12.5 mg, administered: 02/24/2017 12:23:00 PM Dilaudid [IM] IM 1 mg, administered: 02/24/2017 2:24:00 PM Zofran ODT [PO] PO 4 mg, administered: 02/24/2017 4:06:00 PM The following Medications were prescribed to the patient: Hydrocodone/APAP 5mg / 325mg: take 1-2 orally every 6 hours as needed for pain. Dispense twenty-five (25). No refill. -- Hillary Jorge P.A.-C
== END 2017-02-24 16:34 | disposition home or self-care (01) ==
LOC: ED SRH 11:50
DX: S32.019A Unspecified fracture of first lumbar vertebra, initial encounter for closed fracture (principal); S09.90XA Unspecified injury of head, initial encounter; S50.812A Abrasion of left forearm, initial encounter; S22.070S Wedge compression fracture of T9-T10 vertebra, sequela; W18.11XA Fall from or off toilet without subsequent striking against object, initial encounter; Y92.091 Bathroom in other non-institutional residence as the place of occurrence of the external cause; E11.9 Type 2 diabetes mellitus without complications; Z79.84 Long term (current) use of oral hypoglycemic drugs; I10 Essential (primary) hypertension; Z85.831 Personal history of malignant neoplasm of soft tissue

== ENCOUNTER 2017-03-01 15:37 | Observation (INO) | payer OTHER ==
[~2017-03-01] VITALS: Ht 165.1 cm; Wt 108.0 kg
--- NOTE | 2017-03-01 17:10 | ED CLINICAL REPORT ---
Clinical Report - Physicians/Mid Levels [facility] [address] [place] [address] 03/01/2017 15:36 Patient: BETINA CAMARA Time Seen: 15:54; initial patient contact. Arrived- By private vehicle. Historian- patient. HISTORY OF PRESENT ILLNESS Chief Complaint: FALL. Location of injuries- mid back. The injury occurred about 5 days ago. Occurred at home. Fell. The patient complains of moderate pain. No blow to the head, neck pain or loss of consciousness. Not dazed. REVIEW OF SYSTEMS No numbness, nausea, abdominal pain, laceration or vomiting. No urinary problems. She has had pre-existing weakness of the left leg (moderate) and left foot (moderate). All systems otherwise negative, except as recorded above. PAST HISTORY Hypertension. Brain Tumor. Chest Pain. Abdominal Pain. Vomiting. Gastroesophageal Reflux Disease. Diabetes Mellitus. Irregular heart beat. Surgeries: Brain surgery. Cholecystectomy. SOCIAL HISTORY Never smoker. Occasional alcohol use. No drug use. ADDITIONAL NOTES The nursing notes have been reviewed. PHYSICAL EXAM Vital Signs: 03/01/2017 15:57 BP: 164/92. HR: 80. RR: 16. O2 saturation: 97%. Temp: 97.9 F. Pain level now: 0/10. Have been reviewed. Hypertensive. Heart rate normal. Respiratory rate normal. Temperature normal. Oxygen saturation normal. Appearance: Alert. Oriented X3. No acute distress. Head: Head non-tender. No swelling of head. Eyes: Pupils equal, round and reactive to light. EOM intact. ENT: No dental injury. Pharynx normal. Neck: Painless ROM. Non-tender. CVS: Heart sounds normal. Rate normal. Rhythm normal. Respiratory: No respiratory distress. Breath sounds normal. Back: Moderate vertebral point tenderness over the mid thoracic spine. No muscle spasm. Skin: Skin intact. Skin warm and dry. Extremities: Extremities atraumatic. Neuro: Oriented X 3. She has had constant weakness of the left leg (moderate) and left foot (moderate), (Chronic and at baseline from brain tumor). PROGRESS AND PROCEDURES Discussed case with patient's primary care provider, (call returned 17:09 Dr. Holguin. Will admit for intractable back pain.). Disposition: Observation in Acute Care. CLINICAL IMPRESSION Stable nondisplaced T12 burst fracture. No neurological deficit. INSTRUCTIONS Follow-up: Blood pressure screening was not performed during this visit because the patient has an active diagnosis of hypertension. (Electronically signed by Yassine Vasquez Dr. 03/01/2017 22:06)
--- NOTE | 2017-03-01 17:10 | ED NURSING NOTES ---
Clinical Report - Nurses [facility] [address] [place] [address] 03/01/2017 15:36 Patient: BETINA CAMARA TRIAGE Acuity: LEVEL 3. Chief Complaint: FALL while standing. Alert. No acute distress. CAYLA COMA SCORE: Cayla Coma Scale: 15- eyes open spontaneously (4); best verbal response- oriented x 4 (5); best motor response- obeys commands (6). --16:06 Crystal Duong R.N. 15:57 03/01/17. BP: 164/92. HR: 80. RR: 16. O2 saturation: 97% on room air. Temp: 97.9 F (oral). Pain level now: 0/10. --16:06 Crystal Duong R.N. Weight: 107 kg stated. Height/Length: 65 inches Per Patient. BMI: 39.3. --16:00 Crystal Duong R.N. Medications LORazepam Oral 0.5 mg, as needed. --18:14 Crystal Duong R.N. Omeprazole Oral 40 mg, daily. --18:15 Crystal Duong R.N. Combivent Respimat Inhalation. --18:15 Crystal Duong R.N. MetFORMIN HCl Oral (Tablet 1000 mg), daily. Zofran. --18:25 Crystal Duong R.N. Betamethasone Dipropionate External. --18:26 Crystal Duong R.N. Dexamethasone Oral 1 mg, 2 tablets daily. --18:26 Crystal Duong R.N. Buproban Oral 300 mg, daily. --18:27 Crystal Duong R.N. Bactrim Oral. --18:27 Crystal Duong R.N. Farxiga Oral 5 mg . --18:28 Crystal Duong R.N. Fluconazole Oral 150 mg. --18:28 Crystal Duong R.N. Ipratropium-Albuterol Inhalation. --18:28 Crystal Duong R.N. Lomostine 220 mg , every 6 weeks. --18:29 Crystal Duong R.N. Avastin Intravenous, every 2 weeks. --18:30 Crystal Duong R.N. Vicodin Oral. --19:34 Crystal Duong R.N. Medication/allergy information source: the patient. --16:06 Crystal Duong R.N. Allergies Penicillin. --15:59 Crystal Duong R.N. History Arrived by private vehicle. Historian: patient. Accompanied by family. Primary physician (Ezio). This occurred (5 days ago). Occurred at home. ( Pt reports she was sent to the ED by her PCP to be able to be admitted to a fdc facility.). SOCIAL HX: Never smoker. No alcohol use or drug use. NUTRITIONAL RISK ASSESSMENT: The nutritional risk assessment revealed no deficiencies. FUNCTIONAL ASSESSMENT: Functional assessment: no impairments noted. LEARNING NEEDS ASSESSMENT: The learning needs assessment revealed no barriers. FALL RISK ASSESSMENT: Fall risk assessment completed. Risk factors identified include patient age greater than 65 years, history of fall and impairment of mobility. Fall interventions initiated. Side rails up x2. Brakes on Bed in low position. Call light in reach of patient. SKIN INTEGRITY ASSESSMENT: Skin integrity risk assessment completed. No skin integrity risk identified. --16:06 Crystal Duong R.N. PROBLEMS: Abrasion(s). Head Injury. Spinal Fracture. Fall. Hypertension. Brain Tumor. Chest Pain. Abdominal Pain. Vomiting. Gastroesophageal Reflux Disease. Diabetes Mellitus. Irregular heart beat. --16:00 Crystal Duong R.N. ADDITIONAL SURGERIES: Brain surgery. Cholecystectomy. --16:00 Crystal Duong R.N. Assessment GENERAL / NEURO / PSYCH: Alert. Oriented X 4. Appears in no acute distress. Patient appears calm and cooperative. RESPIRATORY: Respirations not labored. CVS: Capillary refill less than 2 seconds. GI / : Abdomen soft and nontender. SKIN: Mucous membranes are pink. Skin is warm and dry. --16:06 Crystal Duong R.N. Interventions ID band on patient. To treatment room. --16:06 Crystal Duong R.N. PHYSICAL ASSESSMENT 16:06 03/01/17. To room via wheelchair. GENERAL / NEURO / PSYCH: Alert. Oriented X 4. Appears in no acute distress. HEENT: Pupils equal, round and reactive to light. RESPIRATORY: Respirations not labored. CVS: Pulses within normal limits. Capillary refill less than 2 seconds. GI / : Abdomen soft and nontender. EXTREMITIES: Neuro-vascular status intact to the extremity. SKIN: Skin intact. Skin is warm and dry. --16:06 Crystal Duong R.N. NURSING PROGRESS NOTES 16:06 03/01/17. Two patient identifiers checked. Call light placed in reach. Side rails up x 2. Bed placed in lowest position. Brakes of bed on. Patient ready for evaluation- ED physician notified. --16:06 Crystal Duong R.N. 18:34 03/01/17. The patient reports no complaints and she is calm and resting quietly. --18:34 Crystal Duong R.N. DISPOSITION / DISCHARGE Departure time: 19:Mar 01 2017. Condition at departure: stable. Disposition: observation. Transported via stretcher by [employer]. Report was given to a nurse via a phone call. Report included patient's care, treatment, medications, reviewed medication reconcilliation, and condition (including any recent changes or anticipated changes). All questions were answered. Report was acknowledged and care was transferred. (HERNAN Joy). Bed obtained (301). Patient's personal items include: shirt, skirt, undergarments, jewelry, purse and cell phone, adithya; items were transported with the patient. She did not have glasses, contacts, dentures or a hearing aid. --19:27 Crystal Duong R.N. 19:24 03/01/17. BP: 152/84. HR: 73. RR: 16. O2 saturation: 97% on room air. Temp: 97.9 F. --19:27 Crystal Duong R.N. Locked/Released at 03/01/2017 19:42 by Crystal Duong R.N.
--- NOTE | 2017-03-01 17:10 | ED CLINICAL REPORT ---
Clinical Report - Physicians/Mid Levels [facility] [address] [place] [address] 03/01/2017 15:36 Patient: BETINA CAMARA Time Seen: 15:54; initial patient contact. Arrived- By private vehicle. Historian- patient. HISTORY OF PRESENT ILLNESS Chief Complaint: FALL. Location of injuries- mid back. The injury occurred about 5 days ago. Occurred at home. Fell. The patient complains of moderate pain. No blow to the head, neck pain or loss of consciousness. Not dazed. REVIEW OF SYSTEMS No numbness, nausea, abdominal pain, laceration or vomiting. No urinary problems. She has had pre-existing weakness of the left leg (moderate) and left foot (moderate). All systems otherwise negative, except as recorded above. PAST HISTORY Hypertension. Brain Tumor. Chest Pain. Abdominal Pain. Vomiting. Gastroesophageal Reflux Disease. Diabetes Mellitus. Irregular heart beat. Surgeries: Brain surgery. Cholecystectomy. SOCIAL HISTORY Never smoker. Occasional alcohol use. No drug use. ADDITIONAL NOTES The nursing notes have been reviewed. PHYSICAL EXAM Vital Signs: 03/01/2017 15:57 BP: 164/92. HR: 80. RR: 16. O2 saturation: 97%. Temp: 97.9 F. Pain level now: 0/10. Have been reviewed. Hypertensive. Heart rate normal. Respiratory rate normal. Temperature normal. Oxygen saturation normal. Appearance: Alert. Oriented X3. No acute distress. Head: Head non-tender. No swelling of head. Eyes: Pupils equal, round and reactive to light. EOM intact. ENT: No dental injury. Pharynx normal. Neck: Painless ROM. Non-tender. CVS: Heart sounds normal. Rate normal. Rhythm normal. Respiratory: No respiratory distress. Breath sounds normal. Back: Moderate vertebral point tenderness over the mid thoracic spine. No muscle spasm. Skin: Skin intact. Skin warm and dry. Extremities: Extremities atraumatic. Neuro: Oriented X 3. She has had constant weakness of the left leg (moderate) and left foot (moderate), (Chronic and at baseline from brain tumor). PROGRESS AND PROCEDURES Discussed case with patient's primary care provider, (call returned 17:09 Dr. Holguin. Will admit for intractable back pain.). Disposition: Observation in Acute Care. CLINICAL IMPRESSION Stable nondisplaced T12 burst fracture. No neurological deficit. INSTRUCTIONS Follow-up: Blood pressure screening was not performed during this visit because the patient has an active diagnosis of hypertension. (Electronically signed by Yassine Vasquez Dr. 03/01/2017 22:06)
--- NOTE | 2017-03-01 17:10 | ED NURSING NOTES ---
Clinical Report - Nurses [facility] [address] [place] [address] 03/01/2017 15:36 Patient: BETINA CAMARA TRIAGE Acuity: LEVEL 3. Chief Complaint: FALL while standing. Alert. No acute distress. CAYLA COMA SCORE: Cayla Coma Scale: 15- eyes open spontaneously (4); best verbal response- oriented x 4 (5); best motor response- obeys commands (6). --16:06 Crystal Duong R.N. 15:57 03/01/17. BP: 164/92. HR: 80. RR: 16. O2 saturation: 97% on room air. Temp: 97.9 F (oral). Pain level now: 0/10. --16:06 Crystal Duong R.N. Weight: 107 kg stated. Height/Length: 65 inches Per Patient. BMI: 39.3. --16:00 Crystal Duong R.N. Medications LORazepam Oral 0.5 mg, as needed. --18:14 Crystal Duong R.N. Omeprazole Oral 40 mg, daily. --18:15 Crystal Duong R.N. Combivent Respimat Inhalation. --18:15 Crystal uDong R.N. MetFORMIN HCl Oral (Tablet 1000 mg), daily. Zofran. --18:25 Crystal Duong R.N. Betamethasone Dipropionate External. --18:26 Crystal Duong R.N. Dexamethasone Oral 1 mg, 2 tablets daily. --18:26 Crystal Duong R.N. Buproban Oral 300 mg, daily. --18:27 Crystal Duong R.N. Bactrim Oral. --18:27 Crystal Duong R.N. Farxiga Oral 5 mg . --18:28 Crystal Duong R.N. Fluconazole Oral 150 mg. --18:28 Crystal Duong R.N. Ipratropium-Albuterol Inhalation. --18:28 Crystal Duong R.N. Lomostine 220 mg , every 6 weeks. --18:29 Crystal Duong R.N. Avastin Intravenous, every 2 weeks. --18:30 Crystal Duong R.N. Vicodin Oral. --19:34 Crystal Duong R.N. Medication/allergy information source: the patient. --16:06 Crystal Duong R.N. Allergies Penicillin. --15:59 Crystal Duong R.N. History Arrived by private vehicle. Historian: patient. Accompanied by family. Primary physician (Ezio). This occurred (5 days ago). Occurred at home. ( Pt reports she was sent to the ED by her PCP to be able to be admitted to a jail facility.). SOCIAL HX: Never smoker. No alcohol use or drug use. NUTRITIONAL RISK ASSESSMENT: The nutritional risk assessment revealed no deficiencies. FUNCTIONAL ASSESSMENT: Functional assessment: no impairments noted. LEARNING NEEDS ASSESSMENT: The learning needs assessment revealed no barriers. FALL RISK ASSESSMENT: Fall risk assessment completed. Risk factors identified include patient age greater than 65 years, history of fall and impairment of mobility. Fall interventions initiated. Side rails up x2. Brakes on Bed in low position. Call light in reach of patient. SKIN INTEGRITY ASSESSMENT: Skin integrity risk assessment completed. No skin integrity risk identified. --16:06 Crystal Duong R.N. PROBLEMS: Abrasion(s). Head Injury. Spinal Fracture. Fall. Hypertension. Brain Tumor. Chest Pain. Abdominal Pain. Vomiting. Gastroesophageal Reflux Disease. Diabetes Mellitus. Irregular heart beat. --16:00 Crystal Duong R.N. ADDITIONAL SURGERIES: Brain surgery. Cholecystectomy. --16:00 Crystal Duong R.N. Assessment GENERAL / NEURO / PSYCH: Alert. Oriented X 4. Appears in no acute distress. Patient appears calm and cooperative. RESPIRATORY: Respirations not labored. CVS: Capillary refill less than 2 seconds. GI / : Abdomen soft and nontender. SKIN: Mucous membranes are pink. Skin is warm and dry. --16:06 Crystal Duong R.N. Interventions ID band on patient. To treatment room. --16:06 Crystal Duong R.N. PHYSICAL ASSESSMENT 16:06 03/01/17. To room via wheelchair. GENERAL / NEURO / PSYCH: Alert. Oriented X 4. Appears in no acute distress. HEENT: Pupils equal, round and reactive to light. RESPIRATORY: Respirations not labored. CVS: Pulses within normal limits. Capillary refill less than 2 seconds. GI / : Abdomen soft and nontender. EXTREMITIES: Neuro-vascular status intact to the extremity. SKIN: Skin intact. Skin is warm and dry. --16:06 Crystal Duong R.N. NURSING PROGRESS NOTES 16:06 03/01/17. Two patient identifiers checked. Call light placed in reach. Side rails up x 2. Bed placed in lowest position. Brakes of bed on. Patient ready for evaluation- ED physician notified. --16:06 Crystal Duong R.N. 18:34 03/01/17. The patient reports no complaints and she is calm and resting quietly. --18:34 Crystal Duong R.N. DISPOSITION / DISCHARGE Departure time: 19:Mar 01 2017. Condition at departure: stable. Disposition: observation. Transported via stretcher by [employer]. Report was given to a nurse via a phone call. Report included patient's care, treatment, medications, reviewed medication reconcilliation, and condition (including any recent changes or anticipated changes). All questions were answered. Report was acknowledged and care was transferred. (HERNAN Joy). Bed obtained (301). Patient's personal items include: shirt, skirt, undergarments, jewelry, purse and cell phone, adithya; items were transported with the patient. She did not have glasses, contacts, dentures or a hearing aid. --19:27 Crystal Duong R.N. 19:24 03/01/17. BP: 152/84. HR: 73. RR: 16. O2 saturation: 97% on room air. Temp: 97.9 F. --19:27 Crystal Duong R.N. Locked/Released at 03/01/2017 19:42 by Crystal Duong R.N.
[2017-03-01 19:58] VITALS: BP 155/81
--- NOTE | 2017-03-01 20:23 | HISTORY AND PHYSICAL ---
ADMITTED: 03/01/2017 CHIEF COMPLAINT: 1. Back pain HISTORY OF PRESENT ILLNESS: A 66-year-old female admitted to [facility] with intractable back pain. She has a history remarkable for astrocytoma of the brain diagnosed in 2014. She has been under treatment with Dr. Murray most recently with periodic infusions of Avastin q.2 weeks and oral lomustine 220 mg one tablet q.6 weeks. Five days prior to admission, she had a fall. She was seen in the emergency department at that time and vertebral compression fracture diagnosed. She was discharged home on oral medication. Her pain has been poorly controlled at home. She has been unable to tolerate transfers. Transfers have required 2 persons and have been unsafe and resulted in falls of both the patient and caregivers. She was seen by myself at a home visit 2 days prior to admission. At that time, she was assessed as not being safe and stable at home. Plans were made for jail management and physical therapy to control the vertebral compression fracture pain and improve her transfers and ambulation with strengthening and training and technique as well as improvement of pain as vertebral compression fracture heals. Scan at the time of the fracture did not show any evidence of metastasis at that time in the location of fracture. The patient contacted her insurance, which was [employer], and was told by her insurance that they would cover 60 days of jail care and that she did not require hospitalization prior to this. The patient informed them that she would continue at home for a little longer if possible. When she called [facility] back, she was advised that an ED visit would be necessary to facilitate jail. The patient, therefore, presented to the emergency department; however, at that time, the door person at [facility] was no longer available, being late in the day, and discharge planning was not available to facilitate transfer. Therefore, decision was made to admit for control of pain and to facilitate transfer to jail when available. MEDICAL/SURGICAL HISTORY: Past medical history remarkable for diabetes mellitus type 2, paroxysmal ventricular tachycardia, palpitations, knee pain, vaginal atrophy, lichen sclerosis, thrombocytopenia, history of falls, elevated blood pressure, thrush, long-term steroid use, depression, GERD, weakness, astrocytoma diagnosed 10/27/2015, memory impairment, hyperlipidemia. Surgeries: Cholecystectomy colonoscopy, cardiac catheterization 08/18/2015 with normal coronary arteries. MEDICATIONS: 1. Lantus insulin 21 units subcutaneous at bedtime. 2. Avastin infusion IV q.2 weeks per Oncology. 3. Lomustine 220 mg 1 tablet q.6 weeks. 4. Lisinopril 10 mg p.o. daily for blood pressure control. 5. Combivent 1 puff q.i.d. 6. Farxiga 5 mg 1 p.o. daily. 7. Zofran 4 mg 1 p.o. t.i.d. p.r.n. nausea. 8. Bactrim DS 800/160 one p.o. daily. 9. Bupropion extended release 300 mg daily. 10. Dexamethasone 1 mg 2 p.o. daily. 11. Omeprazole 40 mg 1 p.o. b.i.d. 12. Lorazepam 0.5 mg 1-2 p.o. b.i.d. p.r.n. anxiety or insomnia. 13. Betamethasone topical to rash b.i.d. 14. Metformin 1000 mg p.o. daily. ALLERGIES: 1. PENICILLIN. SOCIAL HISTORY: female, Rastafari. Enjoys gardening and reading. Has 3 grown children. Employed, retired. FAMILY HISTORY: Father has hypertension and thyroid cancer. Mother has diabetes and hypercholesterolemia. Sister is alive and well. Brother has diabetes. One daughter has hypertension. One daughter has PCOS. REVIEW OF SYSTEMS: General: Denies fevers or chills. Admits to generalized fatigue. HEENT: Denies hearing change, vision change, sore throat, or URI. Respiratory: Denies cough, shortness of breath, or wheezing. Cardiovascular: Denies chest pain, palpitations, or paroxysmal nocturnal dyspnea. Gastrointestinal: Denies nausea, vomiting, diarrhea, constipation, melena, or bright red blood per rectum. PHYSICAL EXAMINATION: VITAL SIGNS: Blood pressure 164/92, heart rate 80, respirations 16, SaO2 97%, temperature 97.9. HEENT: Clear. Facies consistent with steroid use noted. CHEST: Clear to auscultation and percussion. HEART: Regular rate and rhythm without murmur. NECK: Supple without adenopathy or thyromegaly. ABDOMEN: Positive bowel sounds. Soft, nontender, obese. BACK: Straight without CVA tenderness, but there is marked back pain with any movement. EXTREMITIES: Without clubbing or cyanosis. There is diffuse mild brawny edema 1+ . GENITAL/RECTAL/BREASTS: Deferred. LAB/IMAGING: Pending. IMPRESSION/PLAN: Admit to [facility] for intravenous pain control and for disposition planning. Anticipate the patient would benefit from respite care and physical therapy for strengthening and to improve safety of transfers.
--- NOTE | 2017-03-01 20:23 | HISTORY AND PHYSICAL ---
ADMITTED: 03/01/2017 CHIEF COMPLAINT: 1. Back pain HISTORY OF PRESENT ILLNESS: A 66-year-old female admitted to [facility] with intractable back pain. She has a history remarkable for astrocytoma of the brain diagnosed in 2014. She has been under treatment with Dr. Murray most recently with periodic infusions of Avastin q.2 weeks and oral lomustine 220 mg one tablet q.6 weeks. Five days prior to admission, she had a fall. She was seen in the emergency department at that time and vertebral compression fracture diagnosed. She was discharged home on oral medication. Her pain has been poorly controlled at home. She has been unable to tolerate transfers. Transfers have required 2 persons and have been unsafe and resulted in falls of both the patient and caregivers. She was seen by myself at a home visit 2 days prior to admission. At that time, she was assessed as not being safe and stable at home. Plans were made for snf management and physical therapy to control the vertebral compression fracture pain and improve her transfers and ambulation with strengthening and training and technique as well as improvement of pain as vertebral compression fracture heals. Scan at the time of the fracture did not show any evidence of metastasis at that time in the location of fracture. The patient contacted her insurance, which was [employer], and was told by her insurance that they would cover 60 days of snf care and that she did not require hospitalization prior to this. The patient informed them that she would continue at home for a little longer if possible. When she called [facility] back, she was advised that an ED visit would be necessary to facilitate snf. The patient, therefore, presented to the emergency department; however, at that time, the contact worker lithography at [facility] was no longer available, being late in the day, and discharge planning was not available to facilitate transfer. Therefore, decision was made to admit for control of pain and to facilitate transfer to snf when available. MEDICAL/SURGICAL HISTORY: Past medical history remarkable for diabetes mellitus type 2, paroxysmal ventricular tachycardia, palpitations, knee pain, vaginal atrophy, lichen sclerosis, thrombocytopenia, history of falls, elevated blood pressure, thrush, long-term steroid use, depression, GERD, weakness, astrocytoma diagnosed 10/27/2015, memory impairment, hyperlipidemia. Surgeries: Cholecystectomy colonoscopy, cardiac catheterization 08/18/2015 with normal coronary arteries. MEDICATIONS: 1. Lantus insulin 21 units subcutaneous at bedtime. 2. Avastin infusion IV q.2 weeks per Oncology. 3. Lomustine 220 mg 1 tablet q.6 weeks. 4. Lisinopril 10 mg p.o. daily for blood pressure control. 5. Combivent 1 puff q.i.d. 6. Farxiga 5 mg 1 p.o. daily. 7. Zofran 4 mg 1 p.o. t.i.d. p.r.n. nausea. 8. Bactrim DS 800/160 one p.o. daily. 9. Bupropion extended release 300 mg daily. 10. Dexamethasone 1 mg 2 p.o. daily. 11. Omeprazole 40 mg 1 p.o. b.i.d. 12. Lorazepam 0.5 mg 1-2 p.o. b.i.d. p.r.n. anxiety or insomnia. 13. Betamethasone topical to rash b.i.d. 14. Metformin 1000 mg p.o. daily. ALLERGIES: 1. PENICILLIN. SOCIAL HISTORY: female, Roman [employer]. Enjoys gardening and reading. Has 3 grown children. Employed, retired. FAMILY HISTORY: Father has hypertension and thyroid cancer. Mother has diabetes and hypercholesterolemia. Sister is alive and well. Brother has diabetes. One daughter has hypertension. One daughter has PCOS. REVIEW OF SYSTEMS: General: Denies fevers or chills. Admits to generalized fatigue. HEENT: Denies hearing change, vision change, sore throat, or URI. Respiratory: Denies cough, shortness of breath, or wheezing. Cardiovascular: Denies chest pain, palpitations, or paroxysmal nocturnal dyspnea. Gastrointestinal: Denies nausea, vomiting, diarrhea, constipation, melena, or bright red blood per rectum. PHYSICAL EXAMINATION: VITAL SIGNS: Blood pressure 164/92, heart rate 80, respirations 16, SaO2 97%, temperature 97.9. HEENT: Clear. Facies consistent with steroid use noted. CHEST: Clear to auscultation and percussion. HEART: Regular rate and rhythm without murmur. NECK: Supple without adenopathy or thyromegaly. ABDOMEN: Positive bowel sounds. Soft, nontender, obese. BACK: Straight without CVA tenderness, but there is marked back pain with any movement. EXTREMITIES: Without clubbing or cyanosis. There is diffuse mild brawny edema 1+ . GENITAL/RECTAL/BREASTS: Deferred. LAB/IMAGING: Pending. IMPRESSION/PLAN: Admit to [facility] for intravenous pain control and for disposition planning. Anticipate the patient would benefit from respite care and physical therapy for strengthening and to improve safety of transfers.
--- NOTE | 2017-03-01 22:06 | ED MED RECONCILIATION SUMMARY ---
Patient: BETINA CAMARA Medication Reconciliation Report [facility] VisitID: [id number] [address] [place] [address] 66y, F Registration Date/Time: 03/01/2017 Weight: 107.0 kg Height/Length: 65 in. BMI: 39.3 ALLERGIES: Penicillin The patient's Home Medications are listed below: THE FOLLOWING MEDICATIONS NEED TO BE RECONCILED: Avastin Intravenous, every 2 weeks Bactrim Oral Betamethasone Dipropionate External Buproban Oral 300 mg, daily Combivent Respimat Inhalation Dexamethasone Oral 1 mg, 2 tablets daily Farxiga Oral 5 mg Fluconazole Oral 150 mg Ipratropium-Albuterol Inhalation Lomostine 220 mg , every 6 weeks LORazepam Oral 0.5 mg MetFORMIN HCl Oral (1000 mg), daily Omeprazole Oral 40 mg, daily Vicodin Oral Zofran The source(s) of the original Home Medication information: patient The following Medications were given to the patient in the Emergency Department: None. The following Medications were prescribed to the patient: None.
--- NOTE | 2017-03-01 22:06 | ED MAR SUMMARY ---
..... Medication Administration Record [facility] [address] [place], [place] [id number] Patient: BETINA CAMARA Visit ID: [id number] 66y, F Weight: 107.0 kg Height/Length: 65 in BMI: 39.3 ALLERGIES: Penicillin
--- NOTE | 2017-03-01 22:06 | ED DISCHARGE INSTRUCTIONS ---
Patient: BETINA CAMARA General Instructions [facility] VisitID: [id number] [address] [place] [address] 66y, F Registration Date/Time: 03/01/2017 Stable nondisplaced T12 burst fracture. No neurological deficit. INSTRUCTIONS Follow-up: Blood pressure screening was not performed during this visit because the patient has an active diagnosis of hypertension. (Electronically signed by Yassine Vasquez Dr. 03/01/2017 22:06)
--- NOTE | 2017-03-01 22:06 | ED MED RECONCILIATION SUMMARY ---
Patient: BETINA CAMARA Medication Reconciliation Report [facility] VisitID: [id number] [address] [place] [address] 66y, F Registration Date/Time: 03/01/2017 Weight: 107.0 kg Height/Length: 65 in. BMI: 39.3 ALLERGIES: Penicillin The patient's Home Medications are listed below: THE FOLLOWING MEDICATIONS NEED TO BE RECONCILED: Avastin Intravenous, every 2 weeks Bactrim Oral Betamethasone Dipropionate External Buproban Oral 300 mg, daily Combivent Respimat Inhalation Dexamethasone Oral 1 mg, 2 tablets daily Farxiga Oral 5 mg Fluconazole Oral 150 mg Ipratropium-Albuterol Inhalation Lomostine 220 mg , every 6 weeks LORazepam Oral 0.5 mg MetFORMIN HCl Oral (1000 mg), daily Omeprazole Oral 40 mg, daily Vicodin Oral Zofran The source(s) of the original Home Medication information: patient The following Medications were given to the patient in the Emergency Department: None. The following Medications were prescribed to the patient: None.
--- NOTE | 2017-03-01 22:06 | ED DISCHARGE INSTRUCTIONS ---
Patient: BETINA CAMARA General Instructions [facility] VisitID: [id number] [address] [place] [address] 66y, F Registration Date/Time: 03/01/2017 Stable nondisplaced T12 burst fracture. No neurological deficit. INSTRUCTIONS Follow-up: Blood pressure screening was not performed during this visit because the patient has an active diagnosis of hypertension. (Electronically signed by Yassine Vasquez Dr. 03/01/2017 22:06)
--- NOTE | 2017-03-01 22:06 | ED MAR SUMMARY ---
..... Medication Administration Record [facility] [address] [place], [place] [id number] Patient: BETINA CAMARA Visit ID: [id number] 66y, F Weight: 107.0 kg Height/Length: 65 in BMI: 39.3 ALLERGIES: Penicillin
[2017-03-01 22:23] VITALS: BP 134/83
[2017-03-02] MEDS ORDERED: VICODIN EQUIVAL1 TAB PO (00:12)
[2017-03-02] MEDS ORDERED: ATIVAN0.5 MG PO (00:13)
[2017-03-02] MEDS ORDERED: COMBIVIR1 TAB PO (00:14)
[2017-03-02] MEDS ORDERED: BETAMETHASONE 0.05% (00:15)
[2017-03-02] MEDS ORDERED: DEXAMETHASONE1 MG PO (00:15)
[2017-03-02] MEDS ORDERED: BUPROPION HCL300 MG PO (00:16)
[2017-03-02] MEDS ORDERED: BACTRIM1 TAB PO (00:16)
[2017-03-02] MEDS ORDERED: DIFLUCAN150 MG PO (00:17)
[2017-03-02] MEDS ORDERED: IPRATROPIUM BR0.02 % IN (00:17)
[2017-03-02 02:00] VITALS: BP 153/81
[2017-03-02 06:46] VITALS: BP 127/70
[2017-03-02 10:08] VITALS: BP 132/91
[2017-03-02 14:29] VITALS: BP 139/82
--- NOTE | 2017-03-02 18:21 | Progress Note ---
Subjective General Patient feeling well today. Continues to have weakness on the left. No other issues currently- no nausea/vomitting/diarrhea/constipation. No abd pain, SOB, or chest pain. Physical Exam Vital Signs / I&Os Vital Signs Date Time Temp Pulse Resp B/P Pulse O2 O2 Flow FiO2 Ox Delivery Rate 03/02 1429 36.6 80 20 139/82 97 Room Air 03/02 1008 36.8 76 95 132/91 92 Room Air 03/02 0646 36.4 70 20 127/70 99 Room Air 03/02 0200 36.6 66 18 153/81 96 Room Air 03/01 2223 36.7 74 18 134/83 95 Room Air 03/01 1958 36.9 77 20 155/81 97 I&O 03/02 0000 03/01 1600 03/01 0800 Intake Total 500 Output Total 900 Balance -400 General Appearance Alert, Cooperative, No acute distress Lungs Clear to auscultation, Normal air movement Cardiovascular Regular rate and rhythm, Normal S1 and S2, No murmurs, gallops, rubs Abdomen Normal bowel sounds, Soft, No tenderness Extremities Weakness increased on L. 1+ bilateral LE edema Assessment and Plan Problem List 1. Intractable back pain 2. Compression fracture of thoracolumbar vertebra Plan pain under better control with oral narcotics, however, patient with weakness necessitating admission to SNF. Awaiting placement- bed available at [facility], however, working on carve out for her chemo infusion. 3. Astrocytoma brain tumor 4. Weakness
--- NOTE | 2017-03-02 18:21 | Progress Note ---
Subjective General Patient feeling well today. Continues to have weakness on the left. No other issues currently- no nausea/vomitting/diarrhea/constipation. No abd pain, SOB, or chest pain. Physical Exam Vital Signs / I&Os Vital Signs Date Time Temp Pulse Resp B/P Pulse O2 O2 Flow FiO2 Ox Delivery Rate 03/02 1429 36.6 80 20 139/82 97 Room Air 03/02 1008 36.8 76 95 132/91 92 Room Air 03/02 0646 36.4 70 20 127/70 99 Room Air 03/02 0200 36.6 66 18 153/81 96 Room Air 03/01 2223 36.7 74 18 134/83 95 Room Air 03/01 1958 36.9 77 20 155/81 97 I&O 03/02 0000 03/01 1600 03/01 0800 Intake Total 500 Output Total 900 Balance -400 General Appearance Alert, Cooperative, No acute distress Lungs Clear to auscultation, Normal air movement Cardiovascular Regular rate and rhythm, Normal S1 and S2, No murmurs, gallops, rubs Abdomen Normal bowel sounds, Soft, No tenderness Extremities Weakness increased on L. 1+ bilateral LE edema Assessment and Plan Problem List 1. Intractable back pain 2. Compression fracture of thoracolumbar vertebra Plan pain under better control with oral narcotics, however, patient with weakness necessitating admission to SNF. Awaiting placement- bed available at [facility] however, working on carve out for her chemo infusion. 3. Astrocytoma brain tumor 4. Weakness
[2017-03-02 18:40] VITALS: BP 125/75
[2017-03-02 22:48] VITALS: BP 141/86
[2017-03-03 02:37] VITALS: BP 119/59
[2017-03-03 07:07] VITALS: BP 131/73
--- NOTE | 2017-03-03 10:37 | Progress Note ---
Subjective General Patient states that she is doing well. She really likes the lift. Has been with some pain in the back with any coughing. Is feeling better here than she did at home. No cp,sob. Physical Exam Vital Signs / I&Os Vital Signs Date Time Temp Pulse Resp B/P Pulse O2 O2 Flow FiO2 Ox Delivery Rate 03/03 0707 97.9 66 20 131/73 98 Room Air 03/03 0237 97.5 64 20 119/59 98 Room Air 03/02 2248 98.2 77 20 141/86 98 Room Air 03/02 2000 Room Air 03/02 1840 98.4 86 20 125/75 96 Room Air 03/02 1429 97.9 80 20 139/82 97 Room Air I&O 03/03 0000 03/02 1600 03/02 0800 Intake Total 360 680 500 Output Total 1125 1225 1025 Balance -765 -545 -525 General Appearance Alert, Cooperative HEENT Normal exam Lungs Clear to auscultation, Normal air movement Cardiovascular Regular rate and rhythm Abdomen Soft, No tenderness Extremities No edema Neurological a little slow in thought process Assessment and Plan Problem List 1. Astrocytoma brain tumor Plan Has brain tumor and seen by heme/onc and getting chemo 2. Compression fracture of thoracolumbar vertebra Plan Has back pain and weakness and getting pain meds and will work on bowels. 3. Weakness Plan Working on d/c planning for SNF to help strengthening.
[2017-03-03 11:40] VITALS: BP 132/100
[2017-03-03 14:23] VITALS: BP 126/75
[2017-03-03 23:04] VITALS: BP 131/83
[2017-03-04 02:36] VITALS: BP 114/69
[2017-03-04 06:31] VITALS: BP 129/81
[2017-03-04 10:03] VITALS: BP 124/66
--- NOTE | 2017-03-04 10:55 | Discharge Summary ---
Discharge Summary Report Admit Date 03/01/17 Discharge Date 03/04/17 Admission Diagnosis Weakness, back pain, glioma Discharge Diagnosis Weakness, back pain, glioma Brief History Weakness- seen by pt and d/c planning will need SNF referral back pain- post fx working on pain control glioma- [facility] Patient treated with pain meds and then worked on d/c planning to assist her with d/c to SNF and PT/OT. General Appearance Alert, Cooperative HEENT slight L face droop Lungs Clear to auscultation, Normal air movement Cardiovascular Regular Rate Abdomen Soft, obese Neurological slight slurring of words Discharge Instructions/Meds d/c to snf for pt/ot; home meds; will work on bowel protocol for BMMEDICATIONS: 1. Lantus insulin 21 units subcutaneous at bedtime. 2. Avastin infusion IV q.2 weeks per Oncology. 3. Lomustine 220 mg 1 tablet q.6 weeks. 4. Lisinopril 10 mg p.o. daily for blood pressure control. 5. Combivent 1 puff q.i.d. 6. Farxiga 5 mg 1 p.o. daily. 7. Zofran 4 mg 1 p.o. t.i.d. p.r.n. nausea. 8. Bactrim DS 800/160 one p.o. daily. 9. Bupropion extended release 300 mg daily. 10. Dexamethasone 1 mg 2 p.o. daily. 11. Omeprazole 40 mg 1 p.o. b.i.d. 12. Lorazepam 0.5 mg 1-2 p.o. b.i.d. p.r.n. anxiety or insomnia. 13. Betamethasone topical to rash b.i.d. 14. Metformin 1000 mg p.o. daily. 15. bowel protocol
[2017-03-04] MEDS ORDERED: PEG 3351 PO (10:58)
--- NOTE | 2017-03-04 11:00 | Provider's Discharge Care Plan ---
Problem, Goal, Plan Problem List 1. Astrocytoma brain tumor Instructions: Take meds as directed 2. Compression fracture of thoracolumbar vertebra Instructions: Take meds as directed 3. Constipation Instructions: Take meds as directed, bowel protocol 4. Weakness Instructions: PT/OT lift 5. Intractable back pain Instructions: Take meds as directed
[2017-03-04] MEDS ORDERED: VICODIN EQUIVAL1 TAB PO (11:01)
[2017-03-04 12:46] VITALS: BP 124/66
== END 2017-03-04 13:06 | disposition home or self-care (01) ==
LOC: ED SRH 15:37 → CC SRH 17:25 → TRANS SRH 17:25 → CC SRH 19:40 → ACUTE2 SRH 03-03 20:42
PROVIDERS: ADMIT Family Medicine
DX: S22.081A Stable burst fracture of T11-T12 vertebra, initial encounter for closed fracture (principal); W19.XXXA Unspecified fall, initial encounter; R53.1 Weakness; C71.9 Malignant neoplasm of brain, unspecified; E11.9 Type 2 diabetes mellitus without complications; Z79.4 Long term (current) use of insulin
CPT/HCPCS: 29230; 29248; 29251; 84190; 85241; 90098; 92132

== ENCOUNTER 2017-04-17 15:00 | Outpatient (CLI) | payer OTHER ==
[~2017-04-17 15:00] MED LIST changes: +ATIVAN0.5 MG PO; +BACTRIM1 TAB PO; +BETAMETHASONE 0.05%; +BUPROPION HCL300 MG PO; +COMBIVIR1 TAB PO; +DEXAMETHASONE1 MG PO; +DIFLUCAN150 MG PO; +IPRATROPIUM BR0.02 % IN; +PEG 3351 PO; +VICODIN EQUIVAL1 TAB PO
--- NOTE | 2017-04-17 15:29 | DIAGNOSTIC IMAGING REPORT ---
PROCEDURE: XR CHEST 2 VIEW INDICATION: COUGH TECHNIQUE: PA and lateral views. COMPARISON: Chest 12/18/2016 and 10/06/2015 FINDINGS: There is linear scarring right mid lung which is unchanged. Lungs are otherwise clear. Heart and mediastinum are normal. Mild degenerative changes of the thoracic spine. . IMPRESSION: 1. Negative chest.
== END 2017-04-17 23:00 ==
LOC: XR SRH 15:00
DX: R05 Cough (principal)

== ENCOUNTER 2017-04-26 14:20 | Outpatient (CLI) | payer OTHER ==
--- NOTE | 2017-04-26 16:10 | DIAGNOSTIC IMAGING REPORT ---
PROCEDURE: US VENOUS - BILATERAL EXT INDICATION: TOE ULCERS LEFT SIDE TECHNIQUE: Color Doppler duplex imaging of the deep and superficial venous system without and with compression. COMPARISON: None. FINDINGS: RIGHT LOWER EXTREMITY: Deep and superficial venous system of the right lower extremity is within normal limits. There is no evidence of deep vein thrombosis or superficial thrombophlebitis. LEFT LOWER EXTREMITY: Deep and superficial venous system of the left lower extremity is within normal limits. There is no evidence of deep vein thrombosis or superficial thrombophlebitis. There is a 4 x 2.6 x 0.7 cm fluid collection in the medial aspect of the left calf, edema versus of post traumatic changes. IMPRESSION: 1. No evidence of a DVT in both lower extremities 2. Small fluid collection in the left calf medially, edema versus post traumatic changes.
== END 2017-04-26 23:00 ==
LOC: US SRH 14:20
DX: R23.3 Spontaneous ecchymoses (principal); L97.529 Non-pressure chronic ulcer of other part of left foot with unspecified severity

== ENCOUNTER 2017-05-09 15:05 | Inpatient (IN) | payer OTHER ==
[~2017-05-09] VITALS: Ht 165.1 cm; Wt 97.8 kg
[2017-05-09 15:46] VITALS: BP 113/65
[2017-05-09 19:01] VITALS: BP 141/65
--- NOTE | 2017-05-09 19:43 | HISTORY AND PHYSICAL ---
ADMITTED: 05/09/2017 CHIEF COMPLAINT: 1. Dehydration HISTORY OF PRESENT ILLNESS: A 66-year-old female with history of astrocytoma, malignant and metastatic, with failed treatment, presents with dehydration after developing severe diarrhea associated with vomiting and abdominal cramping on the night prior to admission. Diarrhea has been watery and copious in volume. The patient has had to stay at bed rest as she has been unable to get out of bed due to the severity of diarrhea and feeling very weak. Additionally, her mobility has been markedly limited due to a recent back fracture aggravated with twisting that began approximately 2 weeks ago. Her pain has been controlled with morphine, which was started 3 days prior to admission. Family wonders if the morphine relates to the new onset of GI symptomatology. The patient has been increasingly tired, weak and confused since starting with the severe diarrhea. She reemphasizes desire for a DO NOT RESUSCITATE status. She and family are considering hospice, but have not yet reached that decision. There is plan for an MRI of the brain at the end of this week with a plan to meet next week and decide based on the results of the MRI, whether to choose hospice. MEDICAL/SURGICAL HISTORY: Past medical history: Remarkable for astrocytoma diagnosed 10/27/2015, grade 4-5, memory loss secondary to above, GERD, depression, hyperlipidemia, obesity, history of ventricular tachycardia, diabetes mellitus type 2. Surgeries: Cholecystectomy, colonoscopy, cardiac catheterization, coronary artery surgery. MEDICATIONS: 1. Hydrocodone/acetaminophen 5/325, 1-2 p.o. q.4-6 hours p.r.n. pain. 2. Mupirocin ointment to sores t.i.d. 3. Clotrimazole 1% between toes for fungal infection. 4. Prochlorperazine 10 mg p.o. q.6 hours p.r.n. nausea. 5. Carafate 1 g per 10 mL, 10 mL p.o. four times a day. 6. MiraLAX 17 g p.o. daily with water for constipation. 7. Ranitidine 150 mg p.o. b.i.d. 8. Acetaminophen 325 mg 1 p.o. q.4 hours p.r.n. pain. 9. Lantus 12 units subcutaneous at bedtime. 10. Avastin IV every 2 weeks. 11. Zofran 4 mg p.o. t.i.d. p.r.n. nausea. 12. Bupropion XL 300 mg p.o. daily. 13. Dexamethasone 4 mg p.o. daily. 14. Nexium 40 mg p.o. daily. 15. Lorazepam 0.5-1 mg p.o. b.i.d. p.r.n. anxiety or insomnia. ALLERGIES: 1. PENICILLIN. SOCIAL HISTORY: . 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 Taoist: [employer], active in [employer]. Has enjoyed [employer] and reading. FAMILY HISTORY: Mother has had diabetes and hyperlipidemia. Father, hypertension and thyroid cancer. One brother has diabetes. One daughter has hypertension. One daughter has PCOS. REVIEW OF SYSTEMS: HEENT: Denies recent vision or hearing change, congestion or sore throat. Respiratory: Denies cough, shortness of breath, or wheezing. Cardiac: Denies chest pain, palpitations, or paroxysmal nocturnal dyspnea. Gastrointestinal: Marked symptoms as noted above. Denies melena, bright red blood per rectum or hematemesis. Genitourinary: Denies dysuria. Incontinent of urine at this time. Musculoskeletal: Generalized weakness with marked weakness of the left side, both the arm and the leg noted. PHYSICAL EXAMINATION: GENERAL: VITAL SIGNS: HEENT: CHEST: HEART: ABDOMEN: MUSCULOSKELETAL: NEUROLOGIC: LAB/IMAGING: Labs: WBC 1.5, hemoglobin 10.9, hematocrit 31.8, platelets 16,000. Sodium 137, potassium 2.9, chloride 100, bicarb 26, BUN 1, creatinine 0.5, glucose 184. Total bilirubin 0.9, AST 54, ALT 122, alk phos 188, total protein 5.8, albumin 3.1. Urinalysis pending. Stool test pending. ASSESSMENT: 1. Brain cancer. 2. Dehydration, severe 3. Hypokalemia secondary to diarrhea and vomiting. 4. Thrombocytopenia. 5. Diabetes mellitus type 2. 6. The patient also has a vertebral compression fracture of the spine, markedly symptomatic. PLAN: Admit for IV hydration, potassium replacement, platelet supplementation will be given, as patient is markedly symptomatic with diarrhea and vomiting and at risk for exacerbating bleeding and is presently having easy bruising and symptomatic bleeding with minor abrasions. Stool testing will be performed to evaluate for C. difficile or other infectious etiologies. DO NOT RESUSCITATE status is ordered as per patient and family request. Pain will be controlled with IV pain medication.
[2017-05-09 22:31] VITALS: BP 144/75
[2017-05-10] VITALS (9 sets, daily range): BP systolic 107–154; BP diastolic 54–81
--- NOTE | 2017-05-10 07:56 | Progress Note ---
Subjective General 66yo female with metastatic brain cancer admitted with severe diarrhea, dehydration, vomiting and intractable back pain(vertebral compression fracture). Pt has also had a sacral pressure ulcer under home treatment as she has been incontinent and unable to do self care or transfer independently. Pt now confused as to where she is but answers questions appropriately, though very tired. Denies pain at this time. Denies nausea or vomiting. Physical Exam Vital Signs / I&Os Vital Signs Date Time Temp Pulse Resp B/P Pulse O2 O2 Flow FiO2 Ox Delivery Rate 05/10 0700 97.5 73 16 120/58 99 Nasal 2.0 Cannula 05/10 0226 97.9 69 16 140/60 97 05/10 0211 97.9 73 16 93 05/10 0113 97.9 80 16 154/81 99 Nasal 2.0 Cannula 05/10 0100 77 16 134/67 98 Nasal 2.0 Cannula 05/10 0036 98.2 75 16 136/71 98 Nasal 2.0 Cannula 05/09 2231 97.5 79 15 144/75 99 Nasal 2.0 Cannula 05/09 2053 2.0 05/09 1942 Nasal 2.0 Cannula 05/09 1901 97.9 77 16 141/65 96 2.0 05/09 1808 2.0 05/09 1755 2.0 05/09 1546 98.8 88 16 113/65 92 I&O 05/09 0800 05/09 1600 05/10 0000 Intake Total 1025 Output Total 449 Balance 576 General Appearance Alert, Cooperative, No acute distress Lungs Bilateral scattered rhonchi. Cardiovascular Regular rate and rhythm Abdomen Normal bowel sounds, Soft, No tenderness Extremities No edema Skin sacral pressure sore. LAB Results Laboratory Tests 05/09 05/09 05/10 1514 1607 0540 Chemistry Plasma Sodium (136 - 145 mmol/L) 137 140 Plasma Potassium (3.5 - 5.1 mmol/L) 2.9 3.8 Plasma Chloride (98 - 107 mmol/L) 100 105 CO2 (Enzymatic) (21 - 32 mmol/L) 26 30 BUN (7 - 18 mg/dL) 1 12 Creatinine (0.6 - 1.3 mg/dL) 0.5 0.4 Est GFR ( Amer) (mL/min) >60 >60 Est GFR (Non-Af Amer) (mL/min) >60 >60 Glucose (70 - 110 mg/dL) 184 173 Plasma Calcium (8.5 - 10.1 mg/dL) 8.8 8.2 Plasma Magnesium (1.8 - 2.4 mg/dL) 1.9 Total Bilirubin (0.0 - 1.0 mg/dL) 0.9 0.5 AST (15 - 37 U/L) 54 28 ALT (12 - 78 U/L) 122 111 Alkaline Phosphatase (46 - 116 U/L) 188 144 Total Protein (6.4 - 8.2 g/dL) 5.8 5.0 Albumin (3.3 - 5.0 g/dL) 3.1 2.6 Hematology WBC (4.5 - 11.5 K/uL) 1.5 1.1 Corrected WBC (auto) (K/uL) 1.4 RBC (4.00 - 5.20 M/uL) 2.94 2.30 Hgb (12.0 - 16.0 gm/dL) 10.9 8.4 Hct (36.0 - 46.0 %) 31.8 25.2 MCV (80 - 100 fL) 108 109 MCH (26 - 34 pg) 37 37 RDW (11.6 - 14.8 %) 15.7 15.7 Neut % (Auto) (50 - 75 %) 39 Pending Lymph % (Auto) (25 - 40 %) 48 Pending [place] % (Auto) (3 - 14 %) 8 Pending Eos % (Auto) (0 - 4 %) 1 Baso % (Auto) (0 - 2 %) 0 Band Neutrophils % (0 - 8 %) 2 Pending Metamyelocytes % (0 - 1 %) 0 Myelocytes (0 - 1 %) 0 Nucleated RBCs (0 - 1) 4 Other Cell Type ... Plt Count, EDTA (150 - 400 K/uL) 16 77 Polychromasia 1+ Anisocytosis (manual) 1+ Macrocytosis (manual) 1+ PUBS MCHC (31 - 37 g/dL) 34 34 Urines Urine Color Cancelled Urine Appearance Cancelled Urine pH Cancelled Ur Specific [place] Cancelled Urine Protein Cancelled Urine Ketones Cancelled Urine Blood Cancelled Urine Nitrite Cancelled Urine Bilirubin Cancelled Urine Urobilinogen Cancelled Ur Leukocyte Esterase Cancelled Urine RBC Cancelled Urine WBC Cancelled Ur Epithelial Cells Cancelled Urine Bacteria Cancelled Urine Glucose Cancelled Microbiology Date/Time Procedure - Status Source Growth 05/09 2345 MRSA Screen - RECD NASAL 05/09 2315 Clostridium difficile Toxin A & B - COMP STOOL 05/09 2315 Specimen Source - COMP STOOL 05/09 2315 Escherichia coli Shiga Toxins EIA - RECD STOOL 05/09 2315 Campylobacter Culture - RECD STOOL 05/09 2315 Salmonella/Shigella Culture - RECD STOOL 05/09 2315 Ova and Parasites - RECD STOOL 05/09 2315 Giardia Antigen Screen - RECD STOOL Assessment and Plan Problem List 1. Astrocytoma brain tumor Plan Will obtain brain MRI to assess status. 2. Intractable back pain Plan Improved with IV meds. 3. Dehydration Plan Improved with IV hydration 4. Pancytopenia Plan Platelets improved but WBC is lower. 5. Diarrhea Plan Persistent. Await stool tests.
[2017-05-10] MEDS ORDERED: TESSALON PERLE100 MG PO (08:44)
[2017-05-10] MEDS ORDERED: LISINOPRIL10 MG PO (08:45)
[2017-05-10] MEDS ORDERED: MORPHINE SULFAT15 M1 PO (08:47)
[2017-05-10] MEDS ORDERED: ACID REDUCER150 MG PO (08:48)
--- NOTE | 2017-05-10 12:51 | DIAGNOSTIC IMAGING REPORT ---
PROCEDURE: MR BRAIN W/WO CONTRAST INDICATION: Glioblastoma TECHNIQUE: Multiplanar multisequence MRI imaging of the brain without contrast. Post administration of 15 ml ProHance gadolinium based IV contrast, three plane T1 fat sat sequences were obtained. COMPARISON: 04/06/2017 FINDINGS: Suboptimal postcontrast images given patient motion. The right medial temporo-occipital infiltrative enhancing mass is roughly stable in size compared to the most recent prior study. There has been a questionable increase in the degree of abnormal signal and enhancement involving the lateral aspect of the right cerebral peduncle, although this may be a result of the slightly different positioning between the current and most recent prior study. The degree of vasogenic and cytotoxic edema seen adjacent in the right temporal, occipital and parietal region is otherwise stable. The ventricular system is stable in size without significant midline shift of the third ventricle. No evidence of new hemorrhage or infarct. Left maxillary sinus disease, less extensive compared to the prior study. Right temporoparietal craniotomy. IMPRESSION: 1. Stable to minimally increased amount of tumor in the right temporoparietal region with possible slight increase in tumor and edema further involving the right cerebral peduncle. 2. No new midline shift or hydrocephalus. 3. Resolving left maxillary sinus disease. 4. Discussed with Dr. Holguin.
[2017-05-11 03:40] VITALS: BP 136/61
[2017-05-11 06:56] VITALS: BP 132/60
[2017-05-11 10:25] VITALS: BP 147/74
--- NOTE | 2017-05-11 11:56 | Progress Note ---
Subjective General 66yo with glioblastoma, worsening by MRI yesterday, admitted with diarrhea, vomiting,dehydration and intractable back pain(vert comp fx). Diarrhea now resolving and hydration improved with IV. Hypokalemia treated with IV potassium. Pt and family choose hospice. Discussed with Dr. Murray who is in agreement as plan was to refer to hospice if worsening. Pt is tolerating little po so far. Physical Exam Vital Signs / I&Os Vital Signs Date Time Temp Pulse Resp B/P Pulse O2 O2 Flow FiO2 Ox Delivery Rate 05/11 1033 Nasal 1.0 Cannula 05/11 1025 97.7 77 19 147/74 93 Nasal 1.0 Cannula 05/11 0746 1.0 05/11 0656 98.2 66 20 132/60 95 Nasal 1.0 Cannula 05/11 0340 98.2 71 20 136/61 97 Nasal 1.0 Cannula 05/10 2227 98.4 70 16 107/54 99 Nasal 1.0 Cannula 05/10 2009 2.0 05/10 1958 Room Air 05/10 1742 98.8 69 16 132/70 93 Nasal 2.0 Cannula 05/10 1420 98.4 71 16 132/58 97 Nasal 2.0 Cannula I&O 05/10 0800 05/10 1600 05/11 0000 Intake Total 2088 1729 Output Total 491 766 6149 Balance 1405 -566 729 General Appearance Alert, Cooperative, Mild distress Lungs Clear to auscultation Cardiovascular Regular rate and rhythm Abdomen Normal bowel sounds, Soft, No tenderness Extremities No edema Skin Bruising on forearms. LAB Results Laboratory Tests 05/11 0425 Chemistry Plasma Sodium (136 - 145 mmol/L) 137 Plasma Potassium (3.5 - 5.1 mmol/L) 2.9 Plasma Chloride (98 - 107 mmol/L) 103 CO2 (Enzymatic) (21 - 32 mmol/L) 31 BUN (7 - 18 mg/dL) 6 Creatinine (0.6 - 1.3 mg/dL) 0.5 Est GFR ( Amer) (mL/min) >60 Est GFR (Non-Af Amer) (mL/min) >60 Glucose (70 - 110 mg/dL) 121 Plasma Calcium (8.5 - 10.1 mg/dL) 7.9 Plasma Magnesium (1.8 - 2.4 mg/dL) 1.4 Total Bilirubin (0.0 - 1.0 mg/dL) 0.6 AST (15 - 37 U/L) 19 ALT (12 - 78 U/L) 84 Alkaline Phosphatase (46 - 116 U/L) 129 Total Protein (6.4 - 8.2 g/dL) 5.2 Albumin (3.3 - 5.0 g/dL) 2.4 Hematology WBC (4.5 - 11.5 K/uL) 1.1 Corrected WBC (auto) (K/uL) 1.1 RBC (4.00 - 5.20 M/uL) 2.25 Hgb (12.0 - 16.0 gm/dL) 8.2 Hct (36.0 - 46.0 %) 24.3 MCV (80 - 100 fL) 108 MCH (26 - 34 pg) 36 RDW (11.6 - 14.8 %) 15.8 Neut % (Auto) (50 - 75 %) 18 Lymph % (Auto) (25 - 40 %) 59 [place] % (Auto) (3 - 14 %) 9 Eos % (Auto) (0 - 4 %) 1 Baso % (Auto) (0 - 2 %) 0 Band Neutrophils % (0 - 8 %) 11 Metamyelocytes % (0 - 1 %) 2 Myelocytes (0 - 1 %) 0 Nucleated RBCs (0 - 1) 3 Other Cell Type . Plt Count, EDTA (150 - 400 K/uL) 39 Anisocytosis (manual) 1+ Microcytosis (manual) 1+ Macrocytosis (manual) 1+ PUBS MCHC (31 - 37 g/dL) 34 Assessment and Plan Problem List 1. Diarrhea Plan Improving with hydration 2. Dehydration Plan Resolved with IV hydration 3. Astrocytoma brain tumor Plan Worsening per MRI. Hospice referral as per pt family and Dr. Murray. 4. Intractable back pain Plan Oral med with IV for breakthrough at this point. 5. Hypokalemia Plan IV and po supplement.
[2017-05-11 15:03] VITALS: BP 125/57
[2017-05-11 22:29] VITALS: BP 123/66
[2017-05-12 05:11] VITALS: BP 187/89
[2017-05-12 05:31] VITALS: BP 140/75
--- NOTE | 2017-05-12 09:56 | Discharge Summary ---
Discharge Summary Report Admit Date 05/10/17 Discharge Date 05/12/17 Admission Diagnosis Malignant astrocytoma metastatic, weakness,dehydration, hypokalemia, thrombocytopenia, DM II, compression fx with pain Discharge Diagnosis Malignant astrocytoma metastatic, weakness,dehydration, hypokalemia, thrombocytopenia, DM II, compression fx with pain Brief History Treated wtih IVF, K replacement, platelets. Improved symptoms and diarrhea. Family is interested in d/c home with hospice at this time. Hospital Course Improved dehydration, diarrhea, and pain. Has terminal diagnosis and desires d/c home with hospice. General Appearance sleepy female nad HEENT Atraumatic Lungs Clear to auscultation, Normal air movement Cardiovascular Regular Rate Abdomen Soft, No tenderness Discharge Instructions/Meds d/c home, f/u at home with hospice.
[2017-05-12] MEDS ORDERED: POTASSIUM CHLORIDE PO (09:57)
--- NOTE | 2017-05-12 09:59 | Provider's Discharge Care Plan ---
Problem, Goal, Plan Problem List 1. Hypokalemia Instructions: new meds for low k 2. Pancytopenia Instructions: Follow up as directed 3. Astrocytoma brain tumor Instructions: Take meds as directed, home with hospice
== END 2017-05-12 13:00 | disposition hospice, home (50) | DRG 641 ==
LOC: CC SRH 15:05
PROVIDERS: ADMIT Family Medicine
PROC: 30233R1 Transfusion of Nonautologous Platelets into Peripheral Vein, Percutaneous Approach (ICD-10-PCS; principal; 2017-05-10)
DX: E86.0 Dehydration (principal); E87.6 Hypokalemia; R19.7 Diarrhea, unspecified; D61.818 Other pancytopenia; C71.3 Malignant neoplasm of parietal lobe; C71.2 Malignant neoplasm of temporal lobe; C79.9 Secondary malignant neoplasm of unspecified site; S32.000A Wedge compression fracture of unspecified lumbar vertebra, initial encounter for closed fracture; X58.XXXA Exposure to other specified factors, initial encounter; E11.9 Type 2 diabetes mellitus without complications; L89.159 Pressure ulcer of sacral region, unspecified stage; Z79.4 Long term (current) use of insulin; B35.3 Tinea pedis
CPT/HCPCS: 29230; 29231; 29244; 29251; 29253; 29259; 29262; 29264; 90001; 90074; 90098; 90100; 90112; 90124; 90155; 90455; 91643; 91672; 92132; 92720; 95059; 99784